=== PATIENT | male | born 1950 | race African-American/Black ===

== ENCOUNTER 2020-02-05 19:29 | Emergency (ER) | payer MEDICARE ==
[~2020-02-05] VITALS: Ht 185.4 cm; Wt 107.5 kg
[2020-02-05] MEDS ORDERED: MACROBID 100 M100 MG PO (20:07)
[2020-02-15] MEDS ORDERED: FLOMAX0.4 MG PO (11:44)
[2020-02-15] MEDS ORDERED: BACTRIM DS TAB1 EACH PO (11:45)
[2020-02-15] MEDS ORDERED: OXYBUTYNIN CHLOR5 MG PO (11:45)
[2020-02-15] MEDS ORDERED: FINASTERIDE5 MG PO (11:46)
[2020-02-15] MEDS ORDERED: FLUCONAZOLE100 MG PO (11:47)
[2020-02-15] MEDS ORDERED: LEVOFLOXACIN250 MG PO (11:49)
[2020-02-15] MEDS ORDERED: TYLENOL # 31 EA PO (11:49)
[2020-02-15] MEDS ORDERED: CEFDINIR300 MG PO (11:50)
== END 2020-02-05 20:43 | disposition home or self-care (01) ==
LOC: FSED 20:21
DX: R33.9 Retention of urine, unspecified (principal); N39.0 Urinary tract infection, site not specified
CPT/HCPCS: 51700; 81003; 99282

== ENCOUNTER 2020-02-14 05:57 | Emergency (ER) | payer MEDICARE ==
[~2020-02-14] VITALS: Ht 185.4 cm; Wt 108.9 kg
[~2020-02-14 05:57] MED LIST: MACROBID 100 M100 MG PO
--- OUTSIDE RECORDS SUMMARY | 2020-02-14 06:12 | XMS REPORT | Continuity of Care Document ---
Author Author [facility] t Organization [facility] t Address [address] [place] [address] Phone Unavailable Care Team Providers Care Brood Station Manager Name Role Phone Lashaun SCHILLING PCP ROWDY NAVARRETE APRN Attphys Unavailable Payers Payer Name Policy Type Policy Number Effective Date Expiration Date S ource Problems Condition Name Condition Details Condition Category Status Onset Date Resolution Date Last Treatment Date Treating Clinician Comments Source Retention of urine Problem Active [facility] Urinary tract infection Problem Active [facility] Allergies, Adverse Reactions, Alerts Allergy Name Allergy Type Status Severity Reaction(s) Onset Date Inacti ve Date Treating Clinician Comments Source No Known Allergies DA Active U 2019-11-01 00:00:00 [facility] ALMONDS DA Active U 2018-11-02 00:00:00 [facility] No Known Contrast Allergies DA Active U 2005-06-06 00:00: 00 [facility] No Known Drug Allergies DA Active U 2005-06-06 00:00:00 [facility] No Known Food Allergies DA Active U 2005-06-06 00:00:00 [facility] No Known Other Allergies DA Active U 2005-06-06 00:00:00 [facility] No Known Drug Intolerances DA Active U 2002-01-08 00:00:0 0 [facility] Social History Social Habit Start Date Stop Date Quantity Comments Source Sex Assigned At 1950 00:00:00 1950 00:00:00 Male [facility] Medications Ordered Medication Name Filled Medication Name Start Date Stop Da te Current Medication? Ordering Clinician Indication Dosage Frequency Signature (SIG) Comments Components Source Nitrofurantoin Monohyd/M-Cryst (Macrobid 100 Mg Capsul e) 100 Mg CAPSULE Nitrofurantoin Monohyd/M-Cryst (Macrobid 100 Mg Capsule) 100 Mg CAPSULE 2020-02-05 21:07:00 Yes 100 Twice Daily With M eals [facility] Tamsulosin HCl - 0.4 MG Oral Capsule Tamsulosin HCl - 0.4 MG Oral C apsule Yes [facility] Vital Signs Vital Name Observation Time Observation Value Comments Source Oxygen saturation by Pulse oximetry 2020-02-05 20:40:00 98 /min [facility] Weight 2020-02-05 20:40:00 237 [lb_av] [facility] BMI (Body Mass Index) 2020-02-05 20:40:00 31.3 kg/m2 [facility] Systolic blood pressure 2019-11-04 09:19:00 181 mm[Hg] Loca tion: LUE; Position: Standing [facility] Diastolic blood pressure 2019-11-04 09:19:00 98 mm[Hg] Loc ation: LUE; Position: Standing [facility] Body height 2019-11-04 09:19:00 73 [in_us] [facility] Weight 2019-11-04 09:19:00 240 [lb_av] [facility] Body mass index (BMI) [Ratio] 2019-11-04 09:19:00 31.66 kg/m2 [facility] Body temperature 2019-11-04 09:19:00 99 [degF] Method: Temporal [facility] Heart Rate 2019-11-04 09:19:00 114 /min [facility] Respiratory rate 2019-11-04 09:19:00 18 /min [facility] Procedures This patient has no known procedures. Plan of Care Planned Activity Planned Date Details Comments Source Instructions [facility] Instructions Urinary Retention [facility] Instructions Urinary Tract Infection - Men [facility] Encounters Start Date/Time End Date/Time Encounter Type Admission Type Attendi [facility] Care Department Encounter ID Source 2020-02-05 21:21:00 2020-02-05 21:43:00 Departed Emergency Room [facility] [id number] [facility] 2019-11-04 09:30:00 2019-11-04 09:30:00 Appointment; ROWDY NAVARRETE APRN TRAN, JUSTINE, APRN UTP Urology - [facility] [id number] [facility] Results Test Description Test Time Test Comments Results Result Comments Source URINALYSIS COMPLETE 2019-11-04 21:22:00 Test Item UA COLOR (test code = COLU) YELLOW YELLOW UA APPEARANCE (test code = APPU) HAZY CLEAR A UA GLUCOSE DIPSTICK (test code = DGLUU) NEGATIVE mg/dL NEGATIVE UA BILIRUBIN DIPSTICK (test code = BILU) NEGATIVE NEGATIVE UA KETONE DIPSTICK (test code = KETU) NEGATIVE mg/dL NEGATIVE UA SPECIFIC GRAVITY (test code = SGU) 1.020 1.001-1.035 UA BLOOD DIPSTICK (test code = FILIBERTO) 3+ (Large) NEGATIVE A UA PH DIPSTICK (test code = ALEXANDRE) 6.0 5.0-8.0 UA PROTEIN DIPSTICK (test code = PROU) NEGATIVE mg/dL Neg-15 UA UROBILINIOGEN DIPSTICK (test code = URO) 0.2 mg/dL 0.0-0.2 UA NITRITE DIPSTICK (test code = ROHITH) NEGATIVE NEGATIVE UA LEUKOCYTE ESTERASE DIPSTICK (test code = LEUU) NEGATIVE uL NEGA TIVE UA MICROSCOPIC NEEDED? (test code = UAMICRO) YES UA WBC (test code = WBCU) 0-5 per HPF 0-5 UA RBC (test code = RBCU) 50-100 per HPF 0-5 A UA EPITHELIAL CELLS (test code = EPIU) Few (2-5/hpf) per HPF Few UA BACTERIA (test code = BACU) RARE per HPF NONE Urine Source? CatheterURINALYSIS [id number] 21:15:00* Test Item Value Reference Range Interpretation Comments UA COLOR (test code = COLU) YELLOW YELLOW UA APPEARANCE (test code = APPU) HAZY CLEAR A UA GLUCOSE DIPSTICK (test code = DGLUU) NEGATIVE mg/dL NEGATIVE UA BILIRUBIN DIPSTICK (test code = BILU) NEGATIVE NEGATIVE UA KETONE DIPSTICK (test code = KETU) NEGATIVE mg/dL NEGATIVE UA SPECIFIC GRAVITY (test code = SGU) 1.020 1.001-1.035 UA BLOOD DIPSTICK (test code = FILIBERTO) 3+ (Large) NEGATIVE A UA PH DIPSTICK (test code = ALEXANDRE) 6.0 5.0-8.0 UA PROTEIN DIPSTICK (test code = PROU) NEGATIVE mg/dL Neg-15 UA UROBILINIOGEN DIPSTICK (test code = URO) 0.2 mg/dL 0.0-0.2 UA NITRITE DIPSTICK (test code = ROHITH) NEGATIVE NEGATIVE UA LEUKOCYTE ESTERASE DIPSTICK (test code = LEUU) NEGATIVE uL NEGA TIVE UA MICROSCOPIC NEEDED? (test code = UAMICRO) UA WBC (test code = WBCU) per HPF 0-5 UA RBC (test code = RBCU) per HPF 0-5 UA EPITHELIAL CELLS (test code = EPIU) per HPF Few UA BACTERIA (test code = BACU) per HPF NONE Urine Source? CatheterBASIC METABOLIC [id number] 20:57:00* Test Item Value Reference Range Interpretation Comments SODIUM (test code = NA) 139 mmol/L 128-145 N POTASSIUM (test code = K) 3.6 mmol/L 3.5-5.1 N CHLORIDE (test code = CL) 103.0 mmol/L 98-107 N CARBON DIOXIDE (test code = CO2) 25.4 mmol/L 22-29 N ANION GAP (test code = GAP) 14 mmol/L 10-20 N GLUCOSE (test code = GLU) 114 mg/dL 70-110 H BLOOD UREA NITROGEN (test code = BUN) 11 mg/dL 7-22 N GLOMERULAR FILTRATION RATE (test code = GFR) > 60 mL/min >=60 Estimated GFR by using Modified MDRD formula.Chronic kidney disease is defined as either kidney damageor GFR <60 mL/min/1.73 m2 for >3 months. CREATININE (test code = CREAT) 1.17 mg/dL 0.55-1.3 N BUN/CREATININE RATIO (test code = BUN/CREA) 9.4 10-20 L CALCIUM (test code = CA) 8.4 mg/dL 8.0-10.5 N CBC W/AUTO [id number] 20:49:00* Test Item Value Reference Range Interpretation Comments WHITE BLOOD CELL (test code = WBC) 7.6 K/mm3 4.5-12.5 N RED BLOOD CELL (test code = RBC) 4.63 mill/mm3 4.0-5.8 N HEMOGLOBIN (test code = HGB) 12.4 gram/dL 13.0-17.5 L HEMATOCRIT (test code = HCT) 38.9 % 42.0-52.0 L MEAN CELL VOLUME (test code = MCV) 84.0 fL 80-98 N MEAN CELL HGB (test code = MCH) 26.8 picogram 27.0-33.0 L MEAN CELL HGB CONCETRATION (test code = MCHC) 31.9 gram/dL 33.0-36. 0 L RED CELL DISTRIBUTION WIDTH (test code = RDW) 14.0 % 11.6-16. 2 N RED CELL DISTRIBUTION WIDTH SD (test code = RDW-SD) 43.1 fL 37 .0-51.0 N PLATELET COUNT (test code = PLT) 559 K/mm3 150-450 H MEAN PLATELET VOLUME (test code = MPV) 8.6 fL 6.7-11.0 N NEUTROPHIL % (test code = NT%) 67.0 % 39.0-69.0 N LYMPHOCYTE % (test code = LY%) 19.2 % 25.0-55.0 L MONOCYTE % (test code = MO%) 10.5 % 0.0-10.0 H EOSINOPHIL % (test code = EO%) 1.8 % 0.0-5.0 N BASOPHIL % (test code = BA%) 0.5 % 0.0-1.0 N NEUTROPHIL # (test code = NT#) 5.11 K/mm3 1.8-7.7 N LYMPHOCYTE # (test code = LY#) 1.47 K/mm3 1.0-5.0 N MONOCYTE # (test code = MO#) 0.80 K/mm3 0-0.8 N EOSINOPHIL # (test code = EO#) 0.14 K/mm3 0.0-0.5 N BASOPHIL # (test code = BA#) 0.04 K/mm3 0.0-0.2 N URINALYSIS [id number] 23:01:00* Test Item Value Reference Range Interpretation Comments UA COLOR (test code = COLU) RED YELLOW A UA APPEARANCE (test code = APPU) VERY CLOUDY CLEAR A UA GLUCOSE DIPSTICK (test code = DGLUU) NEGATIVE mg/dL NEGATIVE UA BILIRUBIN DIPSTICK (test code = BILU) NEGATIVE NEGATIVE UA KETONE DIPSTICK (test code = KETU) NEGATIVE mg/dL NEGATIVE UA SPECIFIC GRAVITY (test code = SGU) 1.015 1.001-1.035 UA BLOOD DIPSTICK (test code = FILIBERTO) 3+ (Large) NEGATIVE A UA PH DIPSTICK (test code = ALEXANDRE) 7.0 5.0-8.0 UA PROTEIN DIPSTICK (test code = PROU) 100 (2+) mg/dL Neg-15 UA UROBILINIOGEN DIPSTICK (test code = URO) 0.2 mg/dL 0.0-0.2 UA NITRITE DIPSTICK (test code = ROHITH) NEGATIVE NEGATIVE UA LEUKOCYTE ESTERASE DIPSTICK (test code = LEUU) TRACE uL NEGA TIVE A UA MICROSCOPIC NEEDED? (test code = UAMICRO) YES UA WBC (test code = WBCU) 0-5 per HPF 0-5 UA RBC (test code = RBCU) >100 per HPF 0-5 UA EPITHELIAL CELLS (test code = EPIU) None seen per HPF Few UA BACTERIA (test code = BACU) NONE SEEN per HPF NONE Urine Source? Clean CatchURINALYSIS [id number] 22:58:00* Test Item Value Reference Range Interpretation Comments UA COLOR (test code = COLU) RED YELLOW A UA APPEARANCE (test code = APPU) VERY CLOUDY CLEAR A UA GLUCOSE DIPSTICK (test code = DGLUU) NEGATIVE mg/dL NEGATIVE UA BILIRUBIN DIPSTICK (test code = BILU) NEGATIVE NEGATIVE UA KETONE DIPSTICK (test code = KETU) NEGATIVE mg/dL NEGATIVE UA SPECIFIC GRAVITY (test code = SGU) 1.015 1.001-1.035 UA BLOOD DIPSTICK (test code = FILIBERTO) 3+ (Large) NEGATIVE A UA PH DIPSTICK (test code = ALEXANDRE) 7.0 5.0-8.0 UA PROTEIN DIPSTICK (test code = PROU) 100 (2+) mg/dL Neg-15 UA UROBILINIOGEN DIPSTICK (test code = URO) 0.2 mg/dL 0.0-0.2 UA NITRITE DIPSTICK (test code = ROHITH) NEGATIVE NEGATIVE UA LEUKOCYTE ESTERASE DIPSTICK (test code = LEUU) TRACE uL NEGA TIVE A UA MICROSCOPIC NEEDED? (test code = UAMICRO) UA WBC (test code = WBCU) per HPF 0-5 UA RBC (test code = RBCU) per HPF 0-5 UA EPITHELIAL CELLS (test code = EPIU) per HPF Few UA BACTERIA (test code = BACU) per HPF NONE Urine Source? Clean CatchCOMPREHENSIVE METABOLIC [id number] 22:46:00* Test Item Value Reference Range Interpretation Comments SODIUM (test code = NA) 132 mmol/L 128-145 N POTASSIUM (test code = K) 3.2 mmol/L 3.5-5.1 L CHLORIDE (test code = CL) 97.0 mmol/L 98-107 L CARBON DIOXIDE (test code = CO2) 27.6 mmol/L 22-29 N ANION GAP (test code = GAP) 11 mmol/L 10-20 N GLUCOSE (test code = GLU) 120 mg/dL 70-110 H BLOOD UREA NITROGEN (test code = BUN) 16 mg/dL 7-22 N CREATININE (test code = CREAT) 1.23 mg/dL 0.55-1.3 N BUN/CREATININE RATIO (test code = BUN/CREA) 13.0 10-20 N TOTAL PROTEIN (test code = PROT) 7.0 gram/dL 6.1-7.8 N ALBUMIN (test code = ALB) 3.4 g/dL 3.3-4.4 N GLOBULIN (test code = GLOB) 3.6 G/DL 1-10 N ALBUMIN/GLOBULIN RATIO (test code = A/G) 0.9 0.75-1.50 N CALCIUM (test code = CA) 7.6 mg/dL 8.0-10.5 L BILIRUBIN TOTAL (test code = BILT) 0.80 mg/dL 0.2-1.2 N SGOT/AST (test code = AST) 27 U/L 10-39 N SGPT/ALT (test code = ALT) 30 U/L 10-69 N ALKALINE PHOSPHATASE TOTAL (test code = ALKP) 78 U/L 50-139 N COMPREHENSIVE METABOLIC [id number] 22:35:00* Test Item Value Reference Range Interpretation Comments SODIUM (test code = NA) 132 mmol/L 128-145 N POTASSIUM (test code = K) 3.2 mmol/L 3.5-5.1 L CHLORIDE (test code = CL) 97.0 mmol/L 98-107 L CARBON DIOXIDE (test code = CO2) 27.6 mmol/L 22-29 N ANION GAP (test code = GAP) 11 mmol/L 10-20 N GLUCOSE (test code = GLU) 120 mg/dL 70-110 H BLOOD UREA NITROGEN (test code = BUN) 16 mg/dL 7-22 N CREATININE (test code = CREAT) 1.23 mg/dL 0.55-1.3 N BUN/CREATININE RATIO (test code = BUN/CREA) 13.0 10-20 N TOTAL PROTEIN (test code = PROT) gram/dL 6.4-8.2 ALBUMIN (test code = ALB) g/dL 3.4-5.0 GLOBULIN (test code = GLOB) G/DL 1-10 ALBUMIN/GLOBULIN RATIO (test code = A/G) 0.75-1.50 CALCIUM (test code = CA) 7.6 mg/dL 8.0-10.5 L BILIRUBIN TOTAL (test code = BILT) mg/dL 0.0-1.0 SGOT/AST (test code = AST) IUnit/L 15-37 SGPT/ALT (test code = ALT) IUnit/L 12-78 ALKALINE PHOSPHATASE TOTAL (test code = ALKP) IUnit/L 45-117 CBC W/AUTO [id number] 22:26:00* Test Item Value Reference Range Interpretation Comments WHITE BLOOD CELL (test code = WBC) 4.7 K/mm3 4.5-12.5 N RED BLOOD CELL (test code = RBC) 4.99 mill/mm3 4.0-5.8 N HEMOGLOBIN (test code = HGB) 13.8 gram/dL 13.0-17.5 N HEMATOCRIT (test code = HCT) 41.8 % 42.0-52.0 L MEAN CELL VOLUME (test code = MCV) 83.8 fL 80-98 N MEAN CELL HGB (test code = MCH) 27.7 picogram 27.0-33.0 N MEAN CELL HGB CONCETRATION (test code = MCHC) 33.0 gram/dL 33.0-36. 0 N RED CELL DISTRIBUTION WIDTH (test code = RDW) 13.0 % 11.6-16. 2 N RED CELL DISTRIBUTION WIDTH SD (test code = RDW-SD) 40.5 fL 37 .0-51.0 N PLATELET COUNT (test code = PLT) 207 K/mm3 150-450 N MEAN PLATELET VOLUME (test code = MPV) 9.3 fL 6.7-11.0 N NEUTROPHIL % (test code = NT%) 41.1 % 39.0-69.0 N LYMPHOCYTE % (test code = LY%) 41.2 % 25.0-55.0 N MONOCYTE % (test code = MO%) 15.8 % 0.0-10.0 H EOSINOPHIL % (test code = EO%) 0.4 % 0.0-5.0 N BASOPHIL % (test code = BA%) 0.4 % 0.0-1.0 N NEUTROPHIL # (test code = NT#) 1.92 K/mm3 1.8-7.7 N LYMPHOCYTE # (test code = LY#) 1.93 K/mm3 1.0-5.0 N MONOCYTE # (test code = MO#) 0.74 K/mm3 0-0.8 N EOSINOPHIL # (test code = EO#) 0.02 K/mm3 0.0-0.5 N BASOPHIL # (test code = BA#) 0.02 K/mm3 0.0-0.2 N PROSTATE,[id number] 15:08:00 RUN DATE: 11/06/18 [facility] PAGE 1 RUN TIME: 1508 Specimen Inqui ry RUN USER: INTERFACE PATIENT: YOHANNES TRIPP ACCT #: [id number] LOC: U #: [id number] AGE/SX: 67/M ROOM: RE11/04/18REG DR: Edis Sosa : 54 BED: DIS: STATUS: [facility] TLOC: SPEC #: [id number] RECD: 11/04/18 STATUS: JENNYFER KAYLI #: [id number] ROSANGELA: 11/04/18- SUBM DR: Edis Sosa ENTERED: 11/04/18 SP TYPE: BX PROS OTHR DR: Sal Schilling MD ORDERED: GROSS COPIES TO: Edis Sosa [address] [place], [place] [id number] [place] [id number] [facility] [address] [place] [address] MARKERS: INTRADEPARTMENTAL CONSULT PROCEDURES: GROSS (11/06/18-1332) TISSUES: 1. PROSTATE, NOS - RIGHT BASE LATERAL 2. PROSTATE, NOS - RIGHT MEDIAL LATERAL 3. P ROSTATE, NOS - RIGHT APEX LATERAL 4. PROSTATE, NOS - RIGHT BASE MIDDLE 5. PROSTATE, NOS - RIGHT RIGHT MEDIAL MIDDLE 6. PROSTATE, NOS - R IGHT APEX MIDDLE 7. PROSTATE, NOS - LEFT BASE MIDDLE 8. PROSTATE , NOS - LEFT MEDIAL MIDDLE 9. PROSTATE, NOS - LEFT APEX MIDDLE 1 0. PROSTATE, NOS - LEFT BASE LATERAL 11. PROSTATE, NOS - LEFT MEDIAL LAT ERAL 12. PROSTATE, NOS - LEFT APEX LATERAL CLINICAL HISTORY C OLLECTION DATE: 11/04/2018 elevated PSA COMMENT Intradepartm ental consultation: RRB. CONTINUED ON NEXT P AGE RUN DATE: 11/06/18 [facility] PAGE 2 RUN TIME: 1508 Specime n Inquiry RUN USER: INTERFACE SPEC #: [id number] PATIENT: MALKA MENJIVARYOHANNES VIVEROSNE #[id number] (Continued) FINAL D IAGNOSIS Prostate, left base middle, core biopsy: PROSTATIC TISSUE NEGATIVE FOR MALIGNANCY Prostate, left medial middle, core biopsy: PROSTATIC TISSUE NEGATIVE FOR MALIGNANCY Prostate, right apex l ateral: FOCAL CHRONIC INFLAMMATION, PROSTATIC TISSUE NEGATIVE FOR MALIGNANCY Prostate, right base middle: NO TISSUE REMAINING AFTER P ROCESSING Prostate, right medial middle: CHRONIC INFLAMMATION, PROSTATIC TISSUE NEGATIVE FOR MALIGNANCY Prostate, right apex middl e: FOCAL ACUTE AND CHRONIC INFLAMMATION, PROSTATIC TISSUE NEGATIVE FOR MALIGNANCY Prostate, left base middle, core biopsy: ACUTE AND CHRONIC INFLAMMATION, PROSTATIC TISSUE NEGATIVE FOR MALIGNANCY Prostate, left medial middle, core biopsy: PATCHY CHRONIC INFLAMMATION, PROSTATIC TISSUE NEGATIVE FOR MALIGNANCY Prostate, left apex middle , core biopsy: PATCHY CHRONIC INFLAMMATION, PROSTATIC TISSUE NEGATIVE FOR MALIGNANCY Prostate, left base lateral, core biopsy: P ATCHY CHRONIC INFLAMMATION, PROSTATIC TISSUE NEGATIVE FOR MALIGNANCY Prostate, left medial lateral, core biopsy: PATCHY CHRONIC INFLAMMATION , PROSTATIC TISSUE NEGATIVE FOR MALIGNANCY Prostate, left apex late ral, core biopsy: PATCHY CHRONIC INFLAMMATION, PROSTATIC TISSUE NE GATIVE FOR MALIGNANCY CONTINUED ON NEX T PAGE RUN DATE: 11/06/18 [facility] PAGE 3 RUN TIME: 1508 Spec imen Inquiry RUN USER: INTERFACE SPEC #: [id number] PATIENT: YOHANNES PRETTY #[id number] (Continued) FINAL DIAGNOSIS (Continued) DMW/margie Sanchez [id number] MACROSCOPIC The first specimen is labeled "right base lateral" and consists of one moss sof t tissue core biopsy measuring 1.0 cm in length by 0.1 cm in diameter, submitt ed as (1). The second specimen is labeled "right medial lateral" and con sists of one moss soft tissue core biopsy measuring 2.1 cm in length by 0.1 cm in diameter, submitted as (2). The third specimen is labeled "right apex lateral" and consists of one moss soft tissue core biopsy measuring 2.0 cm in length by 0.1 cm in diameter, submitted as (3). The fourth specimen is l abeled "right base middle" and consists of one moss soft tissue core biopsy addison suring 0.6 cm in length by 0.1 cm in diameter, submitted as (4). The fif th specimen is labeled "right medial middle" and consists of one moss soft tiss ue core biopsy measuring 1.5 cm in length by 0.1 cm in diameter, submitted as (5). The sixth specimen is labeled "right apex middle" and consists of two moss soft tissue core biopsies measuring 0.4 and 1.1 cm in length by 0.1 cm in diameter, submitted as (6). The seventh specimen is labeled "left base middle" and consists of one moss soft tissue core biopsy measuring 1.2 and 1.1 cm in length by 0.1 cm in diameter, submitted as (7). The eighth specime n is labeled "left medial middle" and consists of one moss soft tissue core bio psy measuring 1.7 and 1.1 cm in length by 0.1 cm in diameter, submitted as (8) . The ninth specimen is labeled "left apex middle" and consists of one moss soft tissue core biopsy measuring 1.5 and 1.1 cm in length by 0.1 cm in vern meter, submitted as (9). The tenth specimen is labeled "left base lateral" and consists of one moss soft tissue core biopsy measuring 1.2 and 1.1 cm in l ength by 0.1 cm in diameter, submitted as (10). The eleventh specimen is labeled "left medial lateral" and consists of one moss soft tissue core biopsy measuring 1.8 and 1.1 cm in length by 0.1 cm in diameter, submitted as (11). CONTINUED ON NEXT PAGE RUN DATE : 11/06/18 [facility] PAGE 4 RUN TIME: 1508 Specimen Inquiry RUN USER: INTERFACE SPEC #: [id number] PATIENT: YOHANNES TRIPP #[id number] (Continued) MACROSCOPIC (Continue d) The twelfth specimen is labeled "left apex lateral" and consists of on e moss soft tissue core biopsy measuring 1.0 and 1.1 cm in length by 0.1 cm in diameter, submitted as (12). GROSS PERFORMED AT [facility] [address] [place] [place] [address] [phone] MICROSCOPIC All of the stains, including an y controls performed, stain appropriately. MICROSCOPIC PERFORMED AT [facility] [address] [place] [address] (p)[phone] PERFORMING SITE Diagnosis performed a t: [facility] [address] [facility] [place] [address] -- Signed SIGNATURE ON FILE Gale Renteria MD 11/06/18 1508 EN D OF REPORT - XR CHEST 2 [id number] 07:15:00 FAX: Edis Diaz [phone] [place]: St: REG FAX: Dolores Johnson MD [phone] Name: YOHANNES TRIPP [facility] : 1950 Age/S: 67/M [address] Unit #: [id number] Loc: [place] [address] Phys: Edis Sosa Acct: [id number] Dis Date: Status: REG [facility] PHONE #: [phone] Exam Date: 11/04/2018 0656 FAX #: [phone] Reason: PRE-OP EXAMS: CPT CODE: [id number] XR CHEST 2 V [id number] HISTORY: PRE-OP TECHNIQUE: AP chest x-ray COMPARISON: None FINDINGS: No airspace consoli dation or pleural effusion. Eventration of the anterior right hemidiaphrag m. Normal heart size. Mediastinal silhouette is unremarkable. Thoracic spo ndylosis. IMPRESSION: No radiographic evidence of acute cardiopulmonary process. at 0715 Reported and signed by: Rosa Isela Baron D.O. CC: Edis Sosa M.D.; Dolores cShilling MD Technologist: ALEXIS BEAUCHAMP JR Trnscrd Date/Time/By: 11/04/2018 (07) : By: [email or web address] Orig Print D/T: S: 11/04/2018 (0718) PAGE 1 Signed Report BASIC METABOLIC [id number] 07:05:00* Test Item Value Reference Range Interpretation Comments SODIUM (test code = NA) 143 mmol/L 136-145 N POTASSIUM (test code = K) 4.3 mmol/L 3.5-5.1 N CHLORIDE (test code = CL) 110.0 mmol/L 98-107 H CARBON DIOXIDE (test code = CO2) 28.0 mmol/L 21-32 N ANION GAP (test code = GAP) 9.3 10-20 L GLUCOSE (test code = GLU) 92 mg/dL 74-106 N BLOOD UREA NITROGEN (test code = BUN) 15 mg/dL 7-18 N GLOMERULAR FILTRATION RATE (test code = GFR) > 60 mL/min >=60 Estimated GFR by using Modified MDRD formula.Chronic kidney disease is defined as either kidney damageor GFR <60 mL/min/1.73 m2 for >3 months. CREATININE (test code = CREAT) 1.20 mg/dL 0.7-1.3 N BUN/CREATININE RATIO (test code = BUN/CREA) 12.3 10-20 N CALCIUM (test code = CA) 9.4 mg/dL 8.5-10.1 N CBC W/AUTO [id number] 07:04:00* Test Item Value Reference Range Interpretation Comments WHITE BLOOD CELL (test code = WBC) 4.4 K/mm3 4.5-12.5 L RED BLOOD CELL (test code = RBC) 5.53 mill/mm3 4.0-5.8 N HEMOGLOBIN (test code = HGB) 15.3 gram/dL 13.0-17.5 N HEMATOCRIT (test code = HCT) 47.9 % 42.0-52.0 N MEAN CELL VOLUME (test code = MCV) 86.6 fL 80-98 N MEAN CELL HGB (test code = MCH) 27.7 picogram 27.0-33.0 N MEAN CELL HGB CONCETRATION (test code = MCHC) 31.9 gram/dL 33.0-36. 0 L RED CELL DISTRIBUTION WIDTH (test code = RDW) 13.4 % 11.6-16. 2 N RED CELL DISTRIBUTION WIDTH SD (test code = RDW-SD) 42.5 fL 37 .0-51.0 N PLATELET COUNT (test code = PLT) 205 K/mm3 150-450 N MEAN PLATELET VOLUME (test code = MPV) 9.8 fL 6.7-11.0 N NEUTROPHIL % (test code = NT%) 44.1 % 39.0-69.0 N IMMATURE GRANULOCYTE % (test code = IG%) 0.5 % 0.0-5.0 N LYMPHOCYTE % (test code = LY%) 39.8 % 25.0-55.0 N MONOCYTE % (test code = MO%) 11.2 % 0.0-10.0 H EOSINOPHIL % (test code = EO%) 3.7 % 0.0-5.0 N BASOPHIL % (test code = BA%) 0.7 % 0.0-1.0 N NUCLEATED RBC % (test code = NRBC%) 0.0 % 0-0 N NEUTROPHIL # (test code = NT#) 1.93 K/mm3 1.8-7.7 N IMMATURE GRANULOCYTE # (test code = IG#) 0.02 x10 3/uL 0-0.03 N LYMPHOCYTE # (test code = LY#) 1.74 K/mm3 1.0-5.0 N MONOCYTE # (test code = MO#) 0.49 K/mm3 0-0.8 N EOSINOPHIL # (test code = EO#) 0.16 K/mm3 0.0-0.5 N BASOPHIL # (test code = BA#) 0.03 K/mm3 0.0-0.2 N NUCLEATED RBC # (test code = NRBC#) 0.00 K/mm3 0.0-0.1 N BASIC METABOLIC [id number] 07:02:00* Test Item Value Reference Range Interpretation Comments SODIUM (test code = NA) 143 mmol/L 136-145 N POTASSIUM (test code = K) 4.3 mmol/L 3.5-5.1 N CHLORIDE (test code = CL) 110.0 mmol/L 98-107 H CARBON DIOXIDE (test code = CO2) mmol/L 21-32 ANION GAP (test code = GAP) 10-20 GLUCOSE (test code = GLU) mg/dL 74-106 BLOOD UREA NITROGEN (test code = BUN) mg/dL 7-18 GLOMERULAR FILTRATION RATE (test code = GFR) mL/min >=60 CREATININE (test code = CREAT) mg/dL 0.7-1.3 BUN/CREATININE RATIO (test code = BUN/CREA) 10-20 CALCIUM (test code = CA) 9.4 mg/dL 8.5-10.1 N
[2020-02-14] MEDS ORDERED: CEFDINIR300 MG PO (06:25)
--- NOTE | 2020-02-14 06:30 | Emergency Department Note ---
History of Present Illnes History of Present Illness Chief Complaint: Genitourinary History of Present Illness This is a 69 year old male, with a history of BPH status post a partial TURP 2 months ago, was seen here on 02/05/20 with urinary retention and had a Camejo catheter placed. Patient states that since 1300 yesterday afternoon, he has not had any drainage from his Camejo. He is experiencing some suprapubic fullness and discomfort. He denies any fever, chills, nausea, or vomiting. He also denies seeing any blood in his urine. Patient states he is scheduled to have the TURP completed on 02/25/[address] Rodriguez. 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 Onset (how long ago): hour(s) (16) Location: bladder Quality: pressure/discomfort Radiation: Reports abdomen (suprapubic;); Denies back Severity: moderate Onset quality: sudden Duration (how long): hour(s) (16) Timing of current episode: constant Progression: worsening Chronicity: new Context: Reports recent surgery (partial TURP, 2 months ago;); Denies recent illness, Denies trauma/injury, Denies new medications Relieving factors: none Exacerbating factors: none Associated symptoms: Reports denies other symptoms; Denies cough, Denies fever/chills, Denies nausea/vomiting Treatments prior to arrival: none Risk factors: BPH Past Medical/Family History Physician Review I have reviewed the patient's past medical and family history. Any updates have been documented here. Past Medical History Recent Fever: No Clinical Suspicion of Infectio: No New/Unexplained Change in Ment: No Other Medical History: BPH Other Surgery: PROSTATE SX SKIN GRAFT RT HAND D/T ELECTRICAL BURN Social History Smoking Cessation: Never Smoker Alcohol Use: None Any Illegal Drug Use: No TB Exposure/Symptoms: No Physically hurt or threatened: No Family History Family history of heart diseas: No Other Any Pre-Existing Lines (PICC,: No Review of Systems Review of Systems Constitutional: Denies chills, Denies fever, Denies weakness EENTM: Reports no symptoms Cardiovascular: Denies chest pain, Denies palpitations Respiratory: Reports no symptoms Gastrointestinal: Reports abdominal pain (suprapubic); Denies constipation, Denies diarrhea, Denies nausea, Denies vomiting Genitourinary: Reports other (camejo in place) Musculoskeletal: Denies back pain, Denies muscle pain Integumentary: Denies change in color, Denies rash Neurological: Reports no symptoms Psychological: Reports no symptoms Endocrine: Reports no symptoms Hematological/Lymphatic: Reports no symptoms Review of other systems: All other systems negative Physical Exam Related Data Allergies: Coded Allergies: No Known Allergies (Unverified , 02/05/20) Vital signs reviewed: Yes Physical Exam CONSTITUTIONAL Constitutional: Present well-developed, Present well-nourished; Absent distressed, Absent ill appearing HENT HENT: Present normocephalic, Present atraumatic, Present oropharynx clear/moist, Present nose normal HENT L/R: Present left ext ear normal, Present right ext ear normal EYES Eyes: Reports PERRL, Reports conjunctivae normal NECK Neck: Present ROM normal, Present supple; Absent cervical adenopathy PULMONARY Pulmonary: Present effort normal, Present breath sounds normal CARDIOVASCULAR Cardiovascular: Present regular rhythm, Present heart sounds normal, Present capillary refill normal, Present normal rate GASTROINTESTINAL Abdominal: Present soft, Present bowel sounds normal, Present tender (mild suprapubic ttp); Absent distension, Absent guarding, Absent rebound GENITOURINARY Genitourinary: Present exam deferred SKIN Skin: Present warm, Present dry; Absent rash MUSCULOSKELETAL Musculoskeletal: Present ROM normal NEUROLOGICAL Neurological: Present alert, Present oriented x 3 PSYCHOLOGICAL Psychological: Present mood/affect normal, Present judgement normal Results Laboratory Laboratory UA (cath) - yonis-small, blo - large, pro - > 300 mg/dl, nit - neg., geneva - large; Lab results reviewed: Yes Assessment & Plan Medical Decision Making MDM - Follow-up with Dr. Rodriguez, to let him know that you came and we changed out your camejo catheter and treated you for a bladder infection. - increase water intake. - Continue Camejo catheter care, as previously. - Follow-up with Dr. Rodriguez, as scheduled. Assessment & Plan Final Impression: (1) Camejo catheter problem (2) Urinary retention (3) UTI (urinary tract infection) (4) BPH (benign prostatic hyperplasia) Depart Disposition: HOME, SELF-half-way Meds Active Scripts Cefdinir (OMNICEF) 300 Mg Capsule, 1 TAB PO BID for urine infection, #20 CAP 0 Refills Prov:JELLY ISLAS MD 02/14/20 Nitrofurantoin Monohyd/M-Cryst (MACROBID 100 MG CAPSULE) 100 Mg Capsule, 100 MG PO BIDWM, #20 CAP 1 Refill Prov:JOSE VALADEZ 02/05/20 JELLY ISLAS MD Feb 14, 2020 06:30
--- NOTE | 2020-02-14 06:33 | NUR ---
1000 cc of dark mervin urine drained with forley placed. pt states he feels much better. abd soft
[2020-02-15] MEDS ORDERED: FLOMAX0.4 MG PO (11:44)
[2020-02-15] MEDS ORDERED: OXYBUTYNIN CHLOR5 MG PO (11:45)
[2020-02-15] MEDS ORDERED: BACTRIM DS TAB1 EACH PO (11:45)
[2020-02-15] MEDS ORDERED: FINASTERIDE5 MG PO (11:46)
[2020-02-15] MEDS ORDERED: FLUCONAZOLE100 MG PO (11:47)
[2020-02-15] MEDS ORDERED: LEVOFLOXACIN250 MG PO (11:49)
[2020-02-15] MEDS ORDERED: TYLENOL # 31 EA PO (11:49)
[2020-02-15] MEDS ORDERED: CEFDINIR300 MG PO (11:50)
== END 2020-02-14 06:42 | disposition home or self-care (01) ==
LOC: FSED 06:10
DX: Z46.6 Encounter for fitting and adjustment of urinary device (principal); R33.9 Retention of urine, unspecified; N39.0 Urinary tract infection, site not specified; N40.1 Benign prostatic hyperplasia with lower urinary tract symptoms
CPT/HCPCS: 51700; 81003; 87086; 99283

== ENCOUNTER 2020-02-15 17:55 | Emergency (ER) | payer MEDICARE ==
[~2020-02-15] VITALS: Ht 185.4 cm; Wt 107.0 kg
[~2020-02-15 17:55] MED LIST changes: +BACTRIM DS TAB1 EACH PO; +CEFDINIR300 MG PO; +FINASTERIDE5 MG PO; +FLOMAX0.4 MG PO; +FLUCONAZOLE100 MG PO; +LEVOFLOXACIN250 MG PO; +OXYBUTYNIN CHLOR5 MG PO; +TYLENOL # 31 EA PO
--- NOTE | 2020-02-15 18:52 | Emergency Department Note ---
History of Present Illnes History of Present Illness Chief Complaint: Camejo catheter problem History of Present Illness This is a 69 year old male, with a history of BPH and urinary retention, who initially had a camejo catheter placed here on 02/05/20, and was here on 02/14/20 to have it replaced due to the fact that it was clogged, and not emptying. Pt presents today, because the Camejo catheter "fell out." Patient wears a leg bag, and states that he pulled his pants down to go the bathroom, and the catheter was already out, and in his underwear. This happened just prior to arrival. Patient states that there was a small amount of blood at the penile meatus and discomfort, but he is not having any pain or bleeding currently. Patient is scheduled to have his TURP completed on 02/18/20, as he had a partial TURP 2 months ago, but they were unable to completed due to the size of the prostate and the complexity involved. This surgery has been moved up a week. 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 Onset (how long ago): hour(s) (2) Location: bladder Quality: camejo catheter came out Radiation: Reports non-radiation Severity: mild Onset quality: sudden Duration (how long): hour(s) (2) Timing of current episode: constant Progression: unchanged Chronicity: new Context: Reports recent surgery (Partial TURP 2 months ago;); Denies trauma/injury Relieving factors: none Exacerbating factors: none Associated symptoms: Denies chest pain, Denies cough, Denies fever/chills, Denies nausea/vomiting Treatments prior to arrival: none Risk factors: BPH w/urinary retention Past Medical/Family History Physician Review I have reviewed the patient's past medical and family history. Any updates have been documented here. Past Medical History Recent Fever: No Clinical Suspicion of Infectio: No New/Unexplained Change in Ment: No Other Medical History: BPH Other Surgery: PROSTATE SX SKIN GRAFT RT HAND D/T ELECTRICAL BURN Social History Smoking Cessation: Never Smoker Alcohol Use: None Any Illegal Drug Use: No TB Exposure/Symptoms: No Physically hurt or threatened: No Family History Family history of heart diseas: No Other Any Pre-Existing Lines (PICC,: No Review of Systems Review of Systems Constitutional: Reports no symptoms EENTM: Reports no symptoms Cardiovascular: Reports no symptoms Respiratory: Reports no symptoms Gastrointestinal: Reports no symptoms Genitourinary: Reports other (urinary retention); Denies discharge, Denies dysuria, Denies hematuria Musculoskeletal: Reports no symptoms Integumentary: Reports no symptoms Neurological: Reports no symptoms Review of other systems: All other systems negative Physical Exam Related Data Allergies: Coded Allergies: No Known Allergies (Unverified , 02/05/20) Vital signs reviewed: Yes Physical Exam CONSTITUTIONAL Constitutional: Present well-developed, Present well-nourished HENT HENT: Present normocephalic, Present atraumatic, Present oropharynx clear/moist, Present nose normal HENT L/R: Present left ext ear normal, Present right ext ear normal EYES Eyes: Reports PERRL, Reports conjunctivae normal NECK PULMONARY Pulmonary: Present effort normal, Present breath sounds normal CARDIOVASCULAR Cardiovascular: Present regular rhythm, Present heart sounds normal, Present capillary refill normal, Present normal rate GASTROINTESTINAL Abdominal: Present soft, Present nontender, Present bowel sounds normal; Absent distension, Absent tender GENITOURINARY Genitourinary: Present penis normal SKIN Skin: Present warm, Present dry; Absent rash MUSCULOSKELETAL Musculoskeletal: Present ROM normal NEUROLOGICAL Neurological: Present alert, Present oriented x 3 PSYCHOLOGICAL Psychological: Present mood/affect normal, Present behavior normal Assessment & Plan Medical Decision Making MDM 18 Zimbabwe[place] camejo catheter replaced, without difficulty. Pt cautioned on getting the camejo caught, and pulling the camejo catheter out. - Keep your appointment for your surgery with Dr. Rodriguez on 02/18/2020. - Continue your antibiotics. - Continue camejo catheter care. Assessment & Plan Final Impression: (1) Camejo catheter problem (2) BPH (benign prostatic hyperplasia) (3) UTI (urinary tract infection) (4) Urinary retention Depart Disposition: HOME, SELF-skilled nursing Meds Reported Medications Cefdinir (OMNICEF) 300 Mg Capsule, 300 MG PO BID, CAP 02/15/20 Levofloxacin (LEVOFLOXACIN) 250 Mg Tablet, 750 MG PO DAILY, TAB 02/15/20 Acetaminophen/Codeine* (TYLENOL # 3*) 1 Ea Tab, 1 TAB PO DAILY 02/15/20 Fluconazole (FLUCONAZOLE) 100 Mg Tablet, 100 MG PO DAILY, TAB 02/15/20 Finasteride (FINASTERIDE) 5 Mg Tablet, 5 MG PO DAILY, #30 TAB 02/15/20 Oxybutynin Chloride (OXYBUTYNIN CHLORIDE) 5 Mg Tablet, 5 MG PO BID, #30 TAB 02/15/20 Sulfamethoxazole/Trimethoprim (BACTRIM DS TABLET) 1 Each Tablet, 1 TAB PO BID, #60 TAB 02/15/20 Tamsulosin Hcl* (FLOMAX*) 0.4 Mg Cap, 0.4 MG PO DAILY, #30 CAP 02/15/20 Discontinued Scripts Cefdinir (OMNICEF) 300 Mg Capsule, 1 TAB PO BID for urine infection, #20 CAP 0 Refills Prov:JELLY ISLAS MD 02/14/20 Nitrofurantoin Monohyd/M-Cryst (MACROBID 100 MG CAPSULE) 100 Mg Capsule, 100 MG PO BIDWM, #20 CAP 1 Refill Prov:JOSE VALADEZ 02/05/20 JELLY ISLAS MD Feb 15, 2020 18:52
--- OUTSIDE RECORDS SUMMARY | 2020-02-15 18:58 | XMS REPORT | Continuity of Care Document ---
Author Author [facility] Organization [facility] t Address [address] [place] [address] Phone Unavailable Care Team Providers Care Tool Grinder Set Up Operator Gear Name Role Phone Lashaun SCHILLING PCP HAMPEL, CAROL Attphys Unavailable NAVARRETE, ROWDY, SURGERY NURSE Attphys Unavailable Payers Payer Name Policy Type Policy Number Effective Date Expiration Date S ource Problems Condition Name Condition Details Condition Category Status Onset Date Resolution Date Last Treatment Date Treating Clinician Comments Source Retention of urine Problem Active [facility] Urinary tract infection Problem Active [facility] Allergies, Adverse Reactions, Alerts Allergy Name Allergy Type Status Severity Reaction(s) Onset Date Inacti ve Date Treating Clinician Comments Source No Known Allergies DA Active U 2019-11-01 00:00:00 [facility] ALMONDS DA Active U 2018-11-02 00:00:00 [facility] No Known Contrast Allergies DA Active U 2005-06-06 00:00: 00 [facility] No Known Drug Allergies DA Active U 2005-06-06 00:00:00 [facility] No Known Food Allergies DA Active U 2005-06-06 00:00:00 [facility] No Known Other Allergies DA Active U 2005-06-06 00:00:00 [facility] No Known Drug Intolerances DA Active U 2002-01-08 00:00:0 0 [facility] Social History Social Habit Start Date Stop Date Quantity Comments Source Sex Assigned At 1950 00:00:00 1950 00:00:00 Male [facility] Medications Ordered Medication Name Filled Medication Name Start Date Stop Da te Current Medication? Ordering Clinician Indication Dosage Frequency Signature (SIG) Comments Components Source Cefdinir (Omnicef) 300 Mg CAPSULE Cefdinir (Omnicef) 300 Mg CAPSULE 2020-02-14 06:25:00 Yes 1 Twice A Day for Urine Infecti on [facility] Nitrofurantoin Monohyd/M-Cryst (Macrobid 100 Mg Capsul e) 100 Mg CAPSULE Nitrofurantoin Monohyd/M-Cryst (Macrobid 100 Mg Capsule) 100 Mg CAPSULE 2020-02-05 21:07:00 Yes 100 Twice Daily With M eals [facility] Tamsulosin HCl - 0.4 MG Oral Capsule Tamsulosin HCl - 0.4 MG Oral C apsule Yes [facility] Vital Signs Vital Name Observation Time Observation Value Comments Source Oxygen saturation by Pulse oximetry 2020-02-14 06:00:00 98 /min [facility] Weight 2020-02-14 06:00:00 240 [lb_av] [facility] BMI (Body Mass Index) 2020-02-14 06:00:00 31.7 kg/m2 [facility] Oxygen saturation by Pulse oximetry 2020-02-05 20:40:00 98 /min [facility] Weight 2020-02-05 20:40:00 237 [lb_av] [facility] BMI (Body Mass Index) 2020-02-05 20:40:00 31.3 kg/m2 [facility] Systolic blood pressure 2019-11-04 09:19:00 181 mm[Hg] Loca tion: LUE; Position: Standing [facility] Diastolic blood pressure 2019-11-04 09:19:00 98 mm[Hg] Loc ation: LUE; Position: Standing [facility] Body height 2019-11-04 09:19:00 73 [in_us] [facility] Weight 2019-11-04 09:19:00 240 [lb_av] [facility] Body mass index (BMI) [Ratio] 2019-11-04 09:19:00 31.66 kg/m2 [facility] Body temperature 2019-11-04 09:19:00 99 [degF] Method: Temporal [facility] Heart Rate 2019-11-04 09:19:00 114 /min [facility] Respiratory rate 2019-11-04 09:19:00 18 /min [facility] Procedures This patient has no known procedures. Plan of Care Planned Activity Planned Date Details Comments Source Instructions [facility] Instructions Urinary Tract Infection - Men [facility] Encounters Start Date/Time End Date/Time Encounter Type Admission Type Attendi [facility] Care Department Encounter ID Source 2020-02-14 06:10:00 2020-02-14 06:42:00 Departed Emergency Room [facility] [id number] [facility] 2020-02-05 21:21:00 2020-02-05 21:43:00 Departed Emergency Room [facility] [id number] [facility] 2019-11-04 09:30:00 2019-11-04 09:30:00 Appointment; ROWDY NAVARRETE APRN TRAN, JUSTINE, APRN [facility] - [facility] [id number] [facility] Results Test Description Test Time Test Comments Results Result Comments Source CHEST 2 VIEWS 2020-02-15 13:59:00 [facility] 1950 Sex: M [facility] [address] [address] Patient Name: YOHANNES TRIPP MR #: [id number] : 1950 Age/Sex: 69/M Req #: [id number] [facility] Physician: Ordered by: CAROL CHRIS MD Report #: [id number] Location: OR Room/Bed: Procedure: [id number] DX/CHEST 2 VIEWS Exam Date: 02/15/20 Exam Time: 1329 REPORT STATUS: Signed EXAMINATION: CHEST 2 VIEWS INDICATION: Preop for prostate surgery 20200215 PRE OP COMPARISON: None FINDINGS: TUBES and LINES: None. LUNGS: Lungs are well inflated. Lungs are clear. There is no evidence of pneumonia or pulmonary edema. PLEURA: No pleural effusion or pneumothorax. HEART AND MEDIASTINUM: The cardiomediastinal silhouette is unremarkable. BONES AND SOFT TISSUES: No acute osseous lesion. Soft tissues are unremarkable. UPPER ABDOMEN: No free air under the diaphragm. IMPRESSION: No acute thoracic abnormality. Signed by: Dr. London De La Cruz M.D. on 02/15/2020 2:00 PM Dictated By: LONDON DE LA CRUZ MD, MD 1400 Transcribed By: COLE on 02/15/20 1400 COPY TO: CAROL CHRIS MD URINALYSIS COMPLETE 2019-11-04 21:22:00 Test Item UA [...] RARE per HPF NONE Urine Source? CatheterURINALYSIS [id number] 21:15:00* Test Item Value Reference Range Interpretation [...] per HPF NONE Urine Source? CatheterBASIC METABOLIC [id number] 20:57:00* Test Item Value Reference Range Interpretation [...] CA) 8.4 mg/dL 8.0-10.5 N CBC W/AUTO [id number] 20:49:00* Test Item Value Reference Range Interpretation [...] = BA#) 0.04 K/mm3 0.0-0.2 N URINALYSIS [id number] 23:01:00* Test Item Value Reference Range Interpretation [...] per HPF NONE Urine Source? Clean CatchURINALYSIS [id number] 22:58:00* Test Item Value Reference Range Interpretation [...] HPF NONE Urine Source? Clean CatchCOMPREHENSIVE METABOLIC [id number] 22:46:00* Test Item Value Reference Range Interpretation [...] ALKP) 78 U/L 50-139 N COMPREHENSIVE METABOLIC [id number] 22:35:00* Test Item Value Reference Range Interpretation [...] code = ALKP) IUnit/L 45-117 CBC W/AUTO [id number] 22:26:00* Test Item Value Reference Range Interpretation [...] code = BA#) 0.02 K/mm3 0.0-0.2 N PROSTATE,[id number] 15:08:00 RUN DATE: 11/06/18 [place] [employer] [facility] PAGE 1 RUN TIME: 1508 Specimen Inqui ry RUN USER: INTERFACE PATIENT: YOHANNES TRIPP ACCT #: [id number] LOC: [place] U #: [id number] AGE/SX: 67/M ROOM: RE11/04/18RYNE DR: Edis Sosa : 54 BED: DIS: STATUS: DEP [facility] TLOC: SPEC #: [id number] RECD: 11/04/18 STATUS: JENNYFER BACK #: [id number] ROSANGELA: 11/04/18- SUBM DR: Edis Sosa ENTERED: 11/04/18 SP TYPE: BX PROS OTHR DR: Sal Schilling MD ORDERED: GROSS COPIES TO: Edis Sosa [address] [place] [address] [place] [id number] [place] [address] MARKERS: INTRADEPARTMENTAL CONSULT PROCEDURES: GROSS (11/06/18) TISSUES: 1. PROSTATE, NOS - RIGHT BASE [...] ON NEXT P AGE RUN DATE: 11/06/18 [place] - [facility] PAGE 2 RUN TIME: 1508 Specime n Inquiry RUN USER: INTERFACE SPEC #: [id number] PATIENT: SHIRLEYFE MENJIVARYOHANNES #[id number] (Continued) FINAL D IAGNOSIS Prostate, left base [...] ON NEX T PAGE RUN DATE: 11/06/18 [place] - [facility] PAGE 3 RUN TIME: 1508 Spec imen Inquiry RUN USER: INTERFACE SPEC #: [id number] PATIENT: YOHANNES PRETTY #[id number] (Continued) FINAL DIAGNOSIS (Continued) DMW/ D [id number] MACROSCOPIC The first specimen is labeled "right [...] ON NEXT PAGE RUN DATE : 11/06/18 [facility] PAGE 4 RUN TIME: 1508 Specimen Inquiry RUN USER: INTERFACE SPEC #: [id number] PATIENT: TRIPPYOHANNES #[id number] (Continued) MACROSCOPIC (Continue d) The twelfth specimen is labeled "left apex lateral" and consists of on e moss soft tissue core biopsy measuring 1.0 and 1.1 cm in length by 0.1 cm in diameter, submitted as (12). GROSS PERFORMED AT [facility] [address] [place] [address] (p)[phone] MICROSCOPIC All of the stains, including an y controls performed, stain appropriately. MICROSCOPIC PERFORMED AT [facility] [address] [place] [address] (p)[phone] PERFORMING SITE Diagnosis performed a t: [facility] [address] [place] [address] -- Signed SIGNATURE ON FILE Gale Renteria MD 11/06/18 1508 MAGUI D OF REPORT - XR CHEST 2 [id number] 07:15:00 FAX: Edis Diaz [phone] [place]: B St: REG FAX: Dolores Johnson MD [phone] Name: YOHANNES TRIPP [facility] : 1950 Age/S: 67/M [address] [facility] Unit #: [id number] Loc: [place] [address] Phys: Edis Sosaard Acct: [id number] Dis Date: Status: REG [facility] PHONE #: [phone] Exam Date: 11/04/2018 0656 FAX #: [phone] Reason: PRE-OP EXAMS: CPT CODE: [id number] XR CHEST 2 V 18214 HISTORY: PRE-OP TECHNIQUE: AP chest x-ray COMPARISON: None FINDINGS: No airspace consoli dation or pleural effusion. Eventration of the anterior right hemidiaphrag m. Normal heart size. Mediastinal silhouette is unremarkable. Thoracic spo ndylosis. IMPRESSION: No radiographic evidence of acute cardiopulmonary process. at 0715 Reported and signed by: Rosa Isela Baron D.O. CC: Edis Sosa M.D.; Dolores Schilling MD Technologist: ALEXIS BEAUCHAMP JR Trnscrd Date/Time/By: 11/04/2018 (0715) : By: [email or web address] Orig Print D/T: S: 11/04/2018 (18) PAGE 1 Signed Report BASIC METABOLIC [id number] 07:05:00* Test Item Value Reference Range Interpretation [...] CA) 9.4 mg/dL 8.5-10.1 N CBC W/AUTO [id number] 07:04:00* Test Item Value Reference Range Interpretation [...] NRBC#) 0.00 K/mm3 0.0-0.1 N BASIC METABOLIC [id number] 07:02:00* Test Item Value Reference Range Interpretation [...]
== END 2020-02-15 18:44 | disposition home or self-care (01) ==
LOC: FSED 18:29
DX: Z46.6 Encounter for fitting and adjustment of urinary device (principal); R33.9 Retention of urine, unspecified; N39.0 Urinary tract infection, site not specified; N40.1 Benign prostatic hyperplasia with lower urinary tract symptoms
CPT/HCPCS: 51700; 99282

== ENCOUNTER 2020-02-18 08:19 | Inpatient (IN) | payer MEDICARE ==
[2020-02-15 13:23] LABS: BASOPHILS # (AUTO) 0.1 (0.0-0.1); BASOPHILS % 0.6 % (0.0-1.0); EOSINOPHILS # (AUTO) 0.2 (0.0-0.4); HEMATOCRIT 39.3 % (38.2-49.6); HEMOGLOBIN 12.1 g/dL (14.0-18.0); LYMPHOCYTES # (AUTO) 2.1 (1.0-3.2); LYMPHOCYTES % 21.1 % (18.0-39.1); MEAN CORPUSCULAR HGB CONC 30.8 g/dL (31-35); MEAN CORPUSCULAR VOLUME 77.8 fL (81-99); MONOCYTES # (AUTO) 1.4 (0.2-0.8); MONOCYTES % 13.7 % (4.4-11.3); NEUTROPHILS # (AUTO) 6.2 (2.1-6.9); PLATELET COUNT 303 x10e3/uL (140-360); RED BLOOD COUNT 5.05 x10e6/uL (4.3-5.7); RED CELL DISTRIBUTION WIDTH 15.4 % (11.7-14.4)
[2020-02-15 13:53] LABS: BLOOD UREA NITROGEN 14 mg/dL (7-26); BUN/CREATININE RATIO 10 (6-25); CALCIUM 8.7 mg/dL (8.4-10.2); CARBON DIOXIDE 23 mmol/L (22-29); CHLORIDE 107 mmol/L (98-107); CREATININE, SERUM 1.41 mg/dL (0.72-1.25); EST GLOMERULAR FILTRATION RATE > 60 ML/MIN (60-); GLUCOSE 93 mg/dL (74-118); SODIUM 136 mmol/L (136-145)
--- NOTE | 2020-02-15 14:03 | Diagnostic Imaging Report ---
EXAMINATION: CHEST 2 VIEWS INDICATION: Preop for prostate surgery ^20200215 ^1330 ^PRE OP COMPARISON: None FINDINGS: TUBES and LINES: None. LUNGS: Lungs are well inflated. Lungs are clear. There is no evidence of pneumonia or pulmonary edema. PLEURA: No pleural effusion or pneumothorax. HEART AND MEDIASTINUM: The cardiomediastinal silhouette is unremarkable. BONES AND SOFT TISSUES: No acute osseous lesion. Soft tissues are unremarkable. UPPER ABDOMEN: No free air under the diaphragm. IMPRESSION: No acute thoracic abnormality. Signed by: Dr. Krishna De La Cruz M.D. on 02/15/2020 2:00 PM
[~2020-02-18] VITALS: Ht 185.4 cm; Wt 105.7 kg
[2020-02-18] MEDS ORDERED: CEFTRIAXONE SOD 1 GM/NS 50 ML 50 ML IV ONE (09:31)
[2020-02-18] MEDS ORDERED: GENTAMICIN 80MG/NS 100 ML 200 ML IV ONE (09:31)
[2020-02-18] MEDS ORDERED: IOPAMIDOL 300MG/ML 50ML INFUS..BTL IV ONE (10:16)
[2020-02-18] MEDS ORDERED: B&O 60MG R/S 60 MG SUPP PR ONE (10:17)
[2020-02-18] MEDS ORDERED: MEPERIDINE HCL INJ 25 MG/ML VIAL ONE ×2 (12:32→13:05)
[2020-02-18] MEDS ORDERED: PHENAZOPYRIDINE HCL 100 MG TAB PO PRN (13:00)
[2020-02-18] MEDS ORDERED: DIPHENHYDRAMINE HCL 25 MG CAP PO PRN (13:30)
[2020-02-18] MEDS ORDERED: ONDANSETRON HCL INJ 2MG/ML 2ML 2 MG/ML VIAL IV PRN (13:30)
[2020-02-18] MEDS ORDERED: B&O 60MG R/S 60 MG SUPP PR PRN (13:30)
[2020-02-18] MEDS ORDERED: HYDROMORPHONE 1MG/1ML INJ ONE (13:42)
--- OUTSIDE RECORDS SUMMARY | 2020-02-18 14:17 | XMS REPORT | Continuity of Care Document ---
Author Author [facility] t Organization [facility] t Address [address] [place] [address] Phone Unavailable Care Team Providers Care Business Management Analyst Name Role Phone Lashaun SCHILLING PCP HAMPEL, CAROL Attphys Unavailable NAVARRETE, ROWDY, ATTENDING UROLOGIST Attphys Unavailable Payers Payer Name Policy Type Policy Number Effective Date Expiration Date S ource Problems Condition Name Condition Details Condition Category Status Onset Date Resolution Date Last Treatment Date Treating Clinician Comments Source Retention of urine Problem Active [facility] Urinary tract infection Problem Active [facility] Benign prostatic hyperplasia Problem Active [facility] Problem with Smith catheter Problem Active [facility] Allergies, Adverse Reactions, Alerts Allergy Name Allergy Type Status Severity Reaction(s) Onset Date Inacti ve Date Treating Clinician Comments Source No Known Allergies DA Active U 2019-11-01 00:00:00 [facility] ALMONDS DA Active U 2018-11-02 00:00:00 [facility] No Known Contrast Allergies DA Active U 2005-06-06 00:00: 00 [facility] No Known Drug Allergies DA Active U 2005-06-06 00:00:00 [facility] No Known Food Allergies DA Active U 2005-06-06 00:00:00 [facility] No Known Other Allergies DA Active U 2005-06-06 00:00:00 [facility] No Known Drug Intolerances DA Active U 2002-01-08 00:00:0 0 [facility] Social History Social Habit Start Date Stop Date Quantity Comments Source Sex Assigned At 1950 00:00:00 1950 00:00:00 Male [facility] Medications Ordered Medication Name Filled Medication Name Start Date Stop Da te Current Medication? Ordering Clinician Indication Dosage Frequency Signature (SIG) Comments Components Source Cefdinir (Omnicef) 300 Mg CAPSULE Cefdinir (Omnicef) 300 Mg CAPSULE 2020-02-14 06:25:00 2020-02-15 00:00:00 No 1 Twice A Day for Urine Infection [facility] Nitrofurantoin Monohyd/M-Cryst (Macrobid 100 Mg Capsul e) 100 Mg CAPSULE Nitrofurantoin Monohyd/M-Cryst (Macrobid 100 Mg Capsule) 100 Mg CAPSULE 2020-02-05 21:07:00 2020-02-15 00:00:00 No 100 Twice Daily With Meals [facility] Tamsulosin HCl - 0.4 MG Oral Capsule Tamsulosin HCl - 0.4 MG Oral C apsule Yes [facility] Acetaminophen/Codeine Phosphate (Tylenol # 3*) 1 Ea TA B Acetaminophen/Codeine Phosphate (Tylenol # 3*) 1 Ea TAB Yes 1 Vijay y [facility] Cefdinir (Omnicef) 300 Mg CAPSULE Cefdinir (Omnicef) 300 Mg CAPSULE Yes 300 Twice A Day [facility] Finasteride Finasteride Yes 5 Daily [facility] Fluconazole Fluconazole Yes 100 Daily [facility] Levofloxacin Levofloxacin Yes 750 Daily [facility] Oxybutynin Chloride Oxybutynin Chloride Yes 5 Twice A Day [facility] Sulfamethoxazole/Trimethoprim (Bactrim Ds Tablet) 1 Ea ch TABLET Sulfamethoxazole/Trimethoprim (Bactrim Ds Tablet) 1 Each TABLET Yes 1 Twice A Day [facility] Tamsulosin Hcl (Flomax*) 0.4 Mg CAP Tamsulosin Hcl (Flomax*) 0.4 Mg C AP Yes .[address] [facility] Vital Signs Vital Name Observation Time Observation Value Comments Source Oxygen saturation by Pulse oximetry 2020-02-15 17:55:00 97 /min [facility] Weight 2020-02-15 17:55:00 236 [lb_av] [facility] BMI (Body Mass Index) 2020-02-15 17:55:00 31.1 kg/m2 [facility] Oxygen saturation by Pulse oximetry 2020-02-14 06:00:00 98 /min [facility] 2020-02-14 06:00:00 240 [lb_av] [facility] BMI (Body Mass Index) 2020-02-14 06:00:00 31.7 kg/m2 [facility] Oxygen saturation by Pulse oximetry 2020-02-05 20:40:00 98 /min [facility] Weight 2020-02-05 20:40:00 237 [lb_av] [facility] BMI (Body Mass Index) 2020-02-05 20:40:00 31.3 kg/m2 [facility] Systolic blood pressure 2019-11-04 09:19:00 181 mm[Hg] Loca tion: DONAVON; Position: Standing [facility] Diastolic blood pressure 2019-11-04 09:19:00 98 mm[Hg] Loc ation: LUE; Position: Standing [facility] Body height 2019-11-04 09:19:00 73 [in_us] [facility] Weight 2019-11-04 09:19:00 240 [lb_av] [facility] Body mass index (BMI) [Ratio] 2019-11-04 09:19:00 31.66 kg/m2 [facility] Body temperature 2019-11-04 09:19:00 99 [degF] Method: Temporal [facility] Heart Rate 2019-11-04 09:19:00 114 /min [facility] Respiratory rate 2019-11-04 09:19:00 18 /min [facility] Procedures Procedure Date / Time Performed Performing Clinician Sourmarcos e INSERT TEMP BLADDER CATH 2020-02-05 00:00:00 [facility] Plan of Care Planned Activity Planned Date Details Comments Source Instructions Smith Catheter Care [facility] Encounters Start Date/Time End Date/Time Encounter Type Admission Type [facility] Facility Care Department Encounter ID Source 2020-02-15 18:29:00 2020-02-15 18:29:00 Registered Emergency Room [facility] [id number] [facility] 2020-02-14 06:10:00 2020-02-14 06:42:00 Departed Emergency Room [facility] [id number] [facility] 2020-02-05 21:21:00 2020-02-05 21:43:00 Departed Emergency Room [facility] [id number] [facility] 2019-11-04 09:30:00 2019-11-04 09:30:00 Appointment; ROWDY NAVARRETE APRN TRAN, JUSTINE, APRN [facility] Urology - [facility] [id number] [facility] Results Test Description Test Time Test Comments Results Result Comments Source CHEST 2 VIEWS 2020-02-15 13:59:00 [facility]PY[facility] MENJIVAR Mannie : 1950 Sex: M [facility] [address] [address] Patient Name: YOHANNES TRIPP MR #: [id number] : 1950 Age/Sex: 69/M Req #: [id number] Adm Physician: Ordered by: CAROL CHRIS MD Report #: [id number] Location: OR Room/Bed: Procedure: [id number] DX/CHEST 2 VIEWS Exam Date: 02/15/20 Exam [...] RARE per HPF NONE Urine Source? CatheterURINALYSIS [id number] 21:15:00* Test Item Value Reference Range Interpretation [...] per HPF NONE Urine Source? CatheterBASIC METABOLIC [id number] 20:57:00* Test Item Value Reference Range Interpretation [...] CA) 8.4 mg/dL 8.0-10.5 N CBC W/AUTO [id number] 20:49:00* Test Item Value Reference Range Interpretation [...] = BA#) 0.04 K/mm3 0.0-0.2 N URINALYSIS [id number] 23:01:00* Test Item Value Reference Range Interpretation [...] per HPF NONE Urine Source? Clean CatchURINALYSIS [id number] 22:58:00* Test Item Value Reference Range Interpretation [...] HPF NONE Urine Source? Clean CatchCOMPREHENSIVE METABOLIC [id number] 22:46:00* Test Item Value Reference Range Interpretation [...] ALKP) 78 U/L 50-139 N COMPREHENSIVE METABOLIC [id number] 22:35:00* Test Item Value Reference Range Interpretation [...] code = ALKP) IUnit/L 45-117 CBC W/AUTO [id number] 22:26:00* Test Item Value Reference Range Interpretation [...] code = BA#) 0.02 K/mm3 0.0-0.2 N PROSTATE,[id number] 15:08:00 RUN DATE: 11/06/18 [facility] PAGE 1 RUN TIME: 1508 Specimen Inqui ry RUN USER: INTERFACE PATIENT: YOHANNES TRIPP ACCT #: V [id number] LOC: [place] U #: [id number] AGE/SX: 67/M ROOM: RE11/04/18REG DR: Edis Sosa : 54 BED: DIS: STATUS: [facility] TLOC: SPEC #: [id number] RECD: 11/04/18 STATUS: JENNYFER BACK #: [id number] ROSANGELA: 11/04/18- SUBM DR: Edis Sosa ENTERED: 11/04/18-1112 SP TYPE: BX PROS OTHR DR: Marcos Schilling MD ORDERED: GROSS COPIES TO: Edis Sosa [address] [place], [place] [id number] [place] [address] [address] [place] [address] MARKERS: INTRADEPARTMENTAL CONSULT PROCEDURES: GROSS [...] ON NEXT P AGE RUN DATE: 11/06/18 [facility] PAGE 2 RUN TIME: 1508 Specime n Inquiry RUN USER: INTERFACE SPEC #: [id number] PATIENT: YOHANNES LEON #[id number] (Continued) FINAL D IAGNOSIS Prostate, left base [...] ON NEX T PAGE RUN DATE: 11/06/18 [employer] PAGE 3 RUN TIME: 1508 Spec imen Inquiry RUN USER: INTERFACE SPEC #: [id number] PATIENT: YOHANNES PRETTY #[id number] (Continued) FINAL DIAGNOSIS (Continued) [facility]/ D [id number] MACROSCOPIC The first specimen is labeled "right [...] ON NEXT PAGE RUN DATE : 11/06/18 [facility] PAGE 4 RUN TIME: 1508 Specimen Inquiry RUN USER: INTERFACE SPEC #: [id number] PATIENT: YOHANNES TRIPP #V [id number] (Continued) MACROSCOPIC (Continue d) The twelfth specimen is labeled "left apex lateral" and consists of on e moss soft tissue core biopsy measuring 1.0 and 1.1 cm in length by 0.1 cm in diameter, submitted as (12). GROSS PERFORMED AT [facility] [address] [place] [address] (p)[phone] MICROSCOPIC All of the stains, including an y controls performed, stain appropriately. MICROSCOPIC PERFORMED AT [facility] [address] [place] [address] (p)[phone] PERFORMING SITE Diagnosis performed a t: [facility] [address] [place] [address] -- Signed SIGNATURE ON FILE Gale Renteria MD 11/06/18 1508 EN D OF REPORT - XR CHEST 2 [id number] 07:15:00 FAX: Edis Diaz [phone] [place]: B : [facility] FAX: Dolores Johnson MD [phone] Name: YOHANNES TRIPP [facility] : 1950 Age/S: 67/M [address] [facility] Unit #: [id number] Loc: [place] [address] Phys: Edis Sosa Acct: [id number] Dis Date: Status: REG [facility] PHONE #: [phone] Exam Date: 11/04/2018 0656 FAX #: [phone] Reason: PRE-OP EXAMS: CPT CODE: [id number] XR CHEST 2 V 09369 HISTORY: PRE-OP TECHNIQUE: AP chest x-ray COMPARISON: [...] (0718) PAGE 1 Signed Report BASIC METABOLIC [id number] 07:05:00* Test Item Value Reference Range Interpretation [...] CA) 9.4 mg/dL 8.5-10.1 N CBC W/AUTO [id number] 07:04:00* Test Item Value Reference Range Interpretation [...] NRBC#) 0.00 K/mm3 0.0-0.1 N BASIC METABOLIC [id number] 07:02:00* Test Item Value Reference Range Interpretation [...]
--- NOTE | 2020-02-18 14:43 | NUR ---
PT ARRIVED TO ROOM 103. PT AWAKE, ALERT, AT BEDSIDE. PT IN STABLE CONDITION.
[2020-02-18 15:23] VITALS: BP 157/105
[2020-02-18 15:49] LABS: BASOPHILS % 0.5 % (0.0-1.0); EOSINOPHILS # (AUTO) 0.1 (0.0-0.4); EOSINOPHILS % 1.7 % (0.0-6.0); HEMATOCRIT 38.6 % (38.2-49.6); HEMOGLOBIN 11.7 g/dL (14.0-18.0); LYMPHOCYTES # (AUTO) 0.9 (1.0-3.2); LYMPHOCYTES % 13.5 % (18.0-39.1); MEAN CORPUSCULAR HEMOGLOBIN 23.8 pg (28-32); MEAN CORPUSCULAR HGB CONC 30.3 g/dL (31-35); MEAN CORPUSCULAR VOLUME 78.6 fL (81-99); MONOCYTES # (AUTO) 0.5 (0.2-0.8); MONOCYTES % 7.5 % (4.4-11.3); NEUTROPHILS # (AUTO) 5.1 (2.1-6.9); NEUTROPHILS % 76.2 % (38.7-80.0); PLATELET COUNT 338 x10e3/uL (140-360); RED BLOOD COUNT 4.91 x10e6/uL (4.3-5.7)
[2020-02-18 16:04] LABS: ANION GAP 12.4 mmol/L (8-16); BLOOD UREA NITROGEN 11 mg/dL (7-26); BUN/CREATININE RATIO 9 (6-25); CALCIUM 8.3 mg/dL (8.4-10.2); CARBON DIOXIDE 24 mmol/L (22-29); CHLORIDE 108 mmol/L (98-107); CREATININE, SERUM 1.26 mg/dL (0.72-1.25); EST GLOMERULAR FILTRATION RATE > 60 ML/MIN (60-); GLUCOSE 105 mg/dL (74-118); POTASSIUM 4.4 mmol/L (3.5-5.1); SODIUM 140 mmol/L (136-145)
[2020-02-18] MEDS: D5.45%NS/KCL 20MEQ 1,000 ML IV SCH (16:08)
[2020-02-18] MEDS: ACETAMINOPHEN/CODEINE 300MG - 30MG TAB PO PRN (16:22)
[2020-02-18 16:28] VITALS: BP 157/105
[2020-02-18] MEDS ORDERED: DOCUSATE SODIUM 100 MG CAP PO SCH (17:00)
[2020-02-18 20:00] VITALS: BP 131/74
[2020-02-19] VITALS (8 sets, daily range): BP systolic 105–156; BP diastolic 74–88
[2020-02-19] MEDS: D5.45%NS/KCL 20MEQ 1,000 ML IV SCH ×4 (00:42→20:35)
[2020-02-19] MEDS: ACETAMINOPHEN/CODEINE 300MG - 30MG TAB PO PRN (00:47)
--- NOTE | 2020-02-19 04:19 | NUR ---
H&P cc: BPH HPI: 69yoM, PCP , developed BPH, here for management via TURP. Underwent procedure, now recovering. Pain controlled per pt. PMH: BPH, obesity, left orthitis, UTI, nocturia, epididymo-orchitis. PShx:---- Allergies; see emr Fh/Sh; ; no cigs meds; see MAR ROS; no f/c/s/N/V/D/ROJAS/cp/sob/skin rash/confusion/dizzines/vision changes/mood changes vs revd PE tired appearing anicteric ns1s2 mod bs soft nt nd GENAO with pink urine no leg edema skin dry n. affect labs/meds revd A/P: BPH- s/p TURP; flomax Obesity- screen for DM; check lipids BMI 30- as above Prop: scd dispo; f/u AVERY PELLETIER MD, PHD.
[2020-02-19] MEDS ORDERED: DOCUSATE SODIUM 100 MG CAP PO PRN (04:30)
[2020-02-19] MEDS ORDERED: ACETAMINOPHEN 325 MG TAB PO PRN (04:30)
[2020-02-19 05:01] LABS: BASOPHILS # (AUTO) 0.1 (0.0-0.1); BASOPHILS % 0.9 % (0.0-1.0); EOSINOPHILS # (AUTO) 0.2 (0.0-0.4); EOSINOPHILS % 4.2 % (0.0-6.0); HEMATOCRIT 34.1 % (38.2-49.6); HEMOGLOBIN 10.4 g/dL (14.0-18.0); LYMPHOCYTES # (AUTO) 1.1 (1.0-3.2); LYMPHOCYTES % 18.6 % (18.0-39.1); MEAN CORPUSCULAR HEMOGLOBIN 23.8 pg (28-32); MEAN CORPUSCULAR HGB CONC 30.5 g/dL (31-35); MONOCYTES # (AUTO) 0.8 (0.2-0.8); MONOCYTES % 13.2 % (4.4-11.3); NEUTROPHILS # (AUTO) 3.6 (2.1-6.9); NEUTROPHILS % 62.4 % (38.7-80.0); PLATELET COUNT 309 x10e3/uL (140-360); RED BLOOD COUNT 4.37 x10e6/uL (4.3-5.7); RED CELL DISTRIBUTION WIDTH 15.1 % (11.7-14.4)
[2020-02-19 05:26] LABS: BLOOD UREA NITROGEN 9 mg/dL (7-26); BUN/CREATININE RATIO 8 (6-25); CALCIUM 7.8 mg/dL (8.4-10.2); CARBON DIOXIDE 23 mmol/L (22-29); CHLORIDE 107 mmol/L (98-107); CREATININE, SERUM 1.16 mg/dL (0.72-1.25); EST GLOMERULAR FILTRATION RATE > 60 ML/MIN (60-); GLUCOSE 106 mg/dL (74-118); SODIUM 137 mmol/L (136-145)
--- NOTE | 2020-02-19 07:00 | NUR ---
RECEIVED PATIENT RESTING IN BED NO S/S OF DISTRESS. BED LOW, WHEELS LOCKED, SIDE RAILS X2. CALL LIGHT IN REACH WILL CONTINUE TO MONITOR PATIENT.
--- NOTE | 2020-02-19 07:08 | NUR ---
GENAO CARE PROVIDED VIA CASTILE SOAP WIPES
--- NOTE | 2020-02-19 07:15 | NUR ---
REPORT GIVEN TO DAYSHIFT NURSE. ALERT AND ORIENTED. RESTING IN BED. NO SIGNS IV INFILTRATION. BED LOCKED AND IN LOW POSITION. CALL LIGHT WITHIN REACH.
[2020-02-19] MEDS: TAMSULOSIN HCL 0.4 MG CAP PO SCH (08:23)
[2020-02-19] MEDS: FLUCONAZOLE 100 MG TAB PO SCH (08:23)
[2020-02-19] MEDS: FINASTERIDE 5 MG TAB PO SCH (08:23)
[2020-02-19] MEDS: CEFTRIAXONE SOD 1 GM/NS 50 ML 50 ML IV SCH (09:36)
--- NOTE | 2020-02-19 11:07 | Operative Report ---
DATE OF PROCEDURE: 02/18/2020 SURGEON: Zia Rdoriguez MD PREOPERATIVE DIAGNOSES: 1. Huge obstructing BPH. 2. Urinary tract infections. POSTOPERATIVE DIAGNOSES: 1. Huge obstructing BPH. 2. Urinary tract infections. OPERATIONS PERFORMED: 1. Cystourethroscopy with right ureteral catheterization and retrograde ureteropyelography (separate procedure performed for the urinary tract infections). 2. Interpretation of retrograde ureteropyelography, no radiologist present. 3. Supervision of fluoroscopy, no radiologist present. 4. Cystourethroscopy with 2nd stage transurethral resection of the prostate utilizing plasma loop. ANESTHESIA: General. COMPLICATIONS: None. CLINICAL SUMMARY: Demetrius Leonard is a 69-year-old man with a huge prostate. His prostate size was estimated at 150 mL by transrectal ultrasonography. This was performed at the time of prostate biopsies. The patient underwent a transurethral resection of his prostate as a first-stage procedure couple months ago. At that point in time, we eliminated the massive median lobe that was intravesical. We were unable to locate the patient's ureteral orifices inadequately to perform retrograde pyelograms. At that point in time, we eliminated the patient's massive intravesical median lobe, but were unable to address the patient's bilobar prostatic hypertrophy due to the length of surgery and irrigation with TURP. The patient postoperatively, underwent a voiding trial that was successful in the office. However, the patient went back in urinary retention required a couple ER visits to manage that. The patient was brought to the operating room for the second-stage TURP. He is aware of the risks of bleeding, infection, injury to adjacent structures, incontinence, impotence, retrograde ejaculation, need for additional procedures and elected to proceed. OPERATIVE PROCEDURE IN DETAIL: Informed consent was verified, Demetrius Leonard was properly identified and taken to the operating room, placed on the cystoscopy table in supine position. Anesthesia was uneventfully begun. The patient was then carefully gently repositioned in dorsal lithotomy position with all pressure points well padded. His genitalia were prepared and draped in usual sterile fashion. The cystoscope sheath with the visual obturator in place was atraumatically inserted into the patient's urethra, it was guided unremarkably urethra through the prostate bed, which was significant for an extremely long prostatic urethra with bilobar prostatic hypertrophy with kissing lateral lobes. There was no intravesical median lobe noted. Careful panendoscopy was performed, but it was difficult to find the ureteral orifice due to irritation of the posterior bladder wall, most likely from the chronic Smith catheter, it has been resting in that region. We removed the cystoscope sheath, then utilized the continuous-flow laser sheath and then we were able to find the right ureteral orifice and retrograde ureteral pyelograms were performed utilizing an 8-Cameroonian cone-tipped catheter. We were unable to find the left ureteral orifice. Indigo carmine was given by the asbestos shingle inspector. We never saw blue coming from the right nor from the left ureteral orifice. Interpretation of retrograde ureteropyelography contrast was instilled in retrograde fashion on the right-hand side. There was dramatic J-hooking. There was also extremely impressive cephalad deviation of the ureteral orifice caused by the massive prostate pushing the bladder out of the pelvis. There was no chema hydronephrosis. There was ureteral tortuosity, unobstructed drainage was observed fluoroscopically. With the visual obturator, we introduced the extra long resectoscope into the patient's bladder and utilized a plasma loop electrode to resect from the bladder neck tube, but never passed the verumontanum and down the surgical capsule, this is extensive resection and the patient's prostate was massive. Nevertheless, pinpoint electrocautery was utilized to achieve hemostasis. We evacuated all chips and this was verified endoscopically. The resectoscope was withdrawn. A continuous irrigation hematuria catheter was then placed. It was irrigated to and fro to ensure it drained properly. It placed in continuous irrigation with fairly pink efflux. A belladonna and opium suppository were placed, revealing a large 50 g prostate, smooth and non-fluctuant without any nodules. The patient was then uneventfully reversed from anesthesia and taken to recovery room in stable condition. There were no complications to the procedure. He tolerated the procedure well. We will proceed with routine postoperative care and of course ongoing urologic followup. At some point in time, we may consider revisiting the prospect of attempting a left retrograde pyelograms after the patient has healed and is no longer Smith catheter dependent. Zia Rodriguez MD OH/MODL /[id number] cc: Dolores Babcock
--- NOTE | 2020-02-19 15:34 | NUR ---
SW received communication that pt's wanted to discuss options to fill out advance directive paper work.SW met with pt and . had the advance directives paper work in her hand that was provided by the hospital, she was expecting us to help complete paper work by finding appropriate witnesses. SW stated he is happy to answer any questions she has about completing the form however we are not supposed to sign as witness as we are considered part of the treatment team. can either get two witnesses sign it , some one who is not related by blood, or can have it notarized. said she will take it to the bank to get it notarized. No other concerns reported.
[2020-02-19] MEDS: ZOLPIDEM TARTRATE 5 MG TAB PO PRN (21:26)
[2020-02-20] VITALS (7 sets, daily range): BP systolic 140–157; BP diastolic 71–98
--- NOTE | 2020-02-20 03:30 | NUR ---
PERICARE PROVIDED. GENAO CARE PROVIDED VIA CASTILE SOAP WIPES.
[2020-02-20] MEDS: D5.45%NS/KCL 20MEQ 1,000 ML IV SCH ×3 (04:29→20:32)
[2020-02-20 05:28] LABS: BASOPHILS # (AUTO) 0.1 (0.0-0.1); BASOPHILS % 0.8 % (0.0-1.0); EOSINOPHILS # (AUTO) 0.3 (0.0-0.4); EOSINOPHILS % 4.5 % (0.0-6.0); HEMATOCRIT 36.7 % (38.2-49.6); HEMOGLOBIN 11.1 g/dL (14.0-18.0); LYMPHOCYTES # (AUTO) 1.6 (1.0-3.2); LYMPHOCYTES % 26.7 % (18.0-39.1); MEAN CORPUSCULAR HEMOGLOBIN 23.8 pg (28-32); MEAN CORPUSCULAR HGB CONC 30.2 g/dL (31-35); MEAN CORPUSCULAR VOLUME 78.6 fL (81-99); MONOCYTES # (AUTO) 0.7 (0.2-0.8); NEUTROPHILS # (AUTO) 3.4 (2.1-6.9); NEUTROPHILS % 56.2 % (38.7-80.0); PLATELET COUNT 359 x10e3/uL (140-360); RED BLOOD COUNT 4.67 x10e6/uL (4.3-5.7)
[2020-02-20 05:46] LABS: ANION GAP 11.4 mmol/L (8-16); BLOOD UREA NITROGEN 6 mg/dL (7-26); BUN/CREATININE RATIO 5 (6-25); CALCIUM 8.3 mg/dL (8.4-10.2); CARBON DIOXIDE 24 mmol/L (22-29); CHLORIDE 107 mmol/L (98-107); CREATININE, SERUM 1.13 mg/dL (0.72-1.25); EST GLOMERULAR FILTRATION RATE > 60 ML/MIN (60-); GLUCOSE 102 mg/dL (74-118); POTASSIUM 4.4 mmol/L (3.5-5.1); SODIUM 138 mmol/L (136-145)
--- NOTE | 2020-02-20 06:46 | NUR ---
REPORT GIVEN TO DAYSHIFT NURSE. ALERT AND ORIENTED. RESTING IN BED. NO SIGNS IV INFILTRATION. BED LOCKED AND IN LOW POSITION. CALL LIGHT WITHIN REACH.
--- NOTE | 2020-02-20 07:00 | NUR ---
RECEIVED PATIENT RESTING IN BED NO S/S OF DISTRESS. BED LOW, WHEELS LOCKED, SIDE RAILS X2. CALL LIGHT IN REACH WILL CONTINUE TO MONITOR PATIENT.
[2020-02-20] MEDS: FINASTERIDE 5 MG TAB PO SCH (08:18)
[2020-02-20] MEDS: TAMSULOSIN HCL 0.4 MG CAP PO SCH (08:18)
[2020-02-20] MEDS: FLUCONAZOLE 100 MG TAB PO SCH (08:18)
[2020-02-20] MEDS: CEFTRIAXONE SOD 1 GM/NS 50 ML 50 ML IV SCH (09:07)
--- NOTE | 2020-02-20 09:07 | NUR ---
IM- progess note O/N see below ROS; no f/c/s/N/V/D/ROJAS/cp/sob/skin rash/confusion/dizzines/vision changes/mood changes vs revd PE tired appearing anicteric ns1s2 mod bs soft nt nd GENAO with pink urine no leg edema skin dry n. affect labs/meds revd A/P: BPH- s/p TURP; flomax Obesity- screen for DM; check lipids BMI 30- as above Prop: scd dispo; f/u -15 Hypertensive- add low dose BB. AVERY PELLETIER MD, PHD.
[2020-02-20] MEDS: METOPROLOL TARTRATE 25 MG TAB PO SCH ×2 (09:27→21:06)
[2020-02-20] MEDS: ACETAMINOPHEN/CODEINE 300MG - 30MG TAB PO PRN (10:07)
--- NOTE | 2020-02-20 11:35 | NUR ---
Dr. Rodriguez rounding on patient. PRN bladder irrigation. Patient likely to discharge tomorrow.
[2020-02-20] MEDS: ZOLPIDEM TARTRATE 5 MG TAB PO PRN (21:06)
[2020-02-21 00:02] VITALS: BP 142/92
--- NOTE | 2020-02-21 03:35 | NUR ---
GENAO CARE PROVIDED USING CASTILE WIPES
[2020-02-21 04:53] VITALS: BP 152/85
[2020-02-21 04:59] LABS: BASOPHILS # (AUTO) 0.1 (0.0-0.1); EOSINOPHILS # (AUTO) 0.4 (0.0-0.4); EOSINOPHILS % 6.9 % (0.0-6.0); HEMATOCRIT 37.3 % (38.2-49.6); HEMOGLOBIN 11.4 g/dL (14.0-18.0); LYMPHOCYTES # (AUTO) 1.5 (1.0-3.2); LYMPHOCYTES % 25.4 % (18.0-39.1); MEAN CORPUSCULAR HEMOGLOBIN 23.9 pg (28-32); MEAN CORPUSCULAR HGB CONC 30.6 g/dL (31-35); MEAN CORPUSCULAR VOLUME 78.4 fL (81-99); MONOCYTES # (AUTO) 0.6 (0.2-0.8); MONOCYTES % 10.3 % (4.4-11.3); NEUTROPHILS # (AUTO) 3.2 (2.1-6.9); PLATELET COUNT 358 x10e3/uL (140-360); RED BLOOD COUNT 4.76 x10e6/uL (4.3-5.7); RED CELL DISTRIBUTION WIDTH 15.2 % (11.7-14.4)
[2020-02-21 05:16] LABS: ANION GAP 11.5 mmol/L (8-16); BLOOD UREA NITROGEN 7 mg/dL (7-26); BUN/CREATININE RATIO 7 (6-25); CALCIUM 8.6 mg/dL (8.4-10.2); CARBON DIOXIDE 24 mmol/L (22-29); CHLORIDE 108 mmol/L (98-107); CREATININE, SERUM 1.07 mg/dL (0.72-1.25); EST GLOMERULAR FILTRATION RATE > 60 ML/MIN (60-); GLUCOSE 107 mg/dL (74-118); POTASSIUM 4.5 mmol/L (3.5-5.1); SODIUM 139 mmol/L (136-145)
--- NOTE | 2020-02-21 07:04 | NUR ---
RECEIVED REPORT FROM OFF GOING NURSE. PT LYING IN BED, AWAKE, SEMI-FOWLERS POSITION, AND NO APPARENT DISTRESS.
[2020-02-21 08:07] VITALS: BP 160/96
[2020-02-21 08:25] VITALS: BP 160/96
[2020-02-21] MEDS: TAMSULOSIN HCL 0.4 MG CAP PO SCH (08:29)
[2020-02-21] MEDS: FLUCONAZOLE 100 MG TAB PO SCH (08:29)
[2020-02-21] MEDS: FINASTERIDE 5 MG TAB PO SCH (08:30)
[2020-02-21] MEDS: METOPROLOL TARTRATE 25 MG TAB PO SCH (08:30)
--- NOTE | 2020-02-21 09:40 | NUR ---
Smith removed per doctors order. Pt tolerated well.
--- NOTE | 2020-02-21 10:07 | NUR ---
Pt voided freely for the first since camejo removal. Pt had minimal pain while voiding.
[2020-02-21] MEDS: CEFTRIAXONE SOD 1 GM/NS 50 ML 50 ML IV SCH (10:15)
--- NOTE | 2020-02-21 10:47 | NUR ---
EDUCATED ABOUT IMM, SIGNED, FILED IN CHART, WITH COPY LEFT WITH FAMILY AT BEDSIDE.
[2020-02-21 12:05] VITALS: BP 159/94
--- NOTE | 2020-02-21 12:27 | NUR ---
D/C summary Principal Dx; BPH- s/p TURP; flomax Uncontrolled HTN Secondary Dx: Obesity- screen for DM; check lipids BMI 30- as above Prop: scd dispo; f/u 11-15 Hypertensive- add low dose BB. 11-16 uncontrolled HTN- titrate BB up. d/c home stable f/u pcp 2 days and urology 1 week d/c>35mins AVERY PELLETIER MD, PHD.
[2020-02-21] MEDS ORDERED: METOPROLOL TARTRATE 25 MG TAB PO SCH (13:00)
--- NOTE | 2020-02-21 15:02 | NUR ---
Dr Brandt Rodriguez advised okay to D/C from his stand point and make F/U appt in 1 month.
[2020-02-21] MEDS ORDERED: METOPROLOL TART25 MG PO (15:09)
[2020-02-21] MEDS ORDERED: COLACE100 MG PO (15:10)
--- NOTE | 2020-02-21 15:33 | NUR ---
Pt IV removed, no infiltration, no redness, and cath intact. Pt walked off floor for home and pt in no apparent distress.
== END 2020-02-21 15:33 | disposition home or self-care (01) | DRG 713 ==
LOC: OR 08:19 → PACU V 13:27 → MED/SURG 14:43
PROVIDERS: ADMIT Internal Medicine; ATTEND Internal Medicine
PROC: BT1D1ZZ Fluoroscopy of Right Kidney, Ureter and Bladder using Low Osmolar Contrast (ICD-10-PCS; 2020-02-18)
PROC: 0VB08ZZ Excision of Prostate, Via Natural or Artificial Opening Endoscopic (ICD-10-PCS; principal; 2020-02-18 11:00)
DX: N40.1 Benign prostatic hyperplasia with lower urinary tract symptoms (principal); N13.8 Other obstructive and reflux uropathy; R39.14 Feeling of incomplete bladder emptying; R33.8 Other retention of urine; R39.12 Poor urinary stream; E66.9 Obesity, unspecified; N45.3 Epididymo-orchitis; I10 Essential (primary) hypertension; Z68.30 Body mass index [BMI] 30.0-30.9, adult; Z20.828 Contact with and (suspected) exposure to other viral communicable diseases
CPT/HCPCS: 36415; 71046; 74420; 80048; 80061; 83036; 83735; 85025; 88305; 93005; C1758; J0696; J1170; J1580; J2175; U0002

== ENCOUNTER 2020-02-22 15:27 | Emergency (ER) | payer MEDICARE ==
[~2020-02-22] VITALS: Ht 185.4 cm; Wt 105.7 kg
[~2020-02-22 15:27] MED LIST changes: +COLACE100 MG PO; +METOPROLOL TART25 MG PO
--- NOTE | 2020-02-22 15:50 | Emergency Department Note ---
History of Present Illnes History of Present Illness Chief Complaint: Genitourinary History of Present Illness This is a 69 year old male Chief Complaint Comment PATIENT IN FROM HOME WITH COMPLAINTS OF BEING UNABLE TO URINATE SINCE CATHETER WAS PULLED YESTERDAY; PATIENT STATES THAT HE HAD A TURP PROCEDURE ON FRIDAY AND THE CATHETER WAS TAKEN OUT YESTERDAY, AND NOW HE IS UNABLE TO URINATE TODAY; STATES THAT THE URINE WAS CLEAR YESTERDAY. Historian: Patient Arrival Mode: Car Pet House Sitter Required: No Onset (how long ago): day(s) Location: Bladder Quality: Cannot urinate Radiation: Reports non-radiation Severity: moderate Onset quality: sudden Duration (how long): day(s) (1) Timing of current episode: constant Progression: worsening Chronicity: new Context: Denies recent illness, Denies recent surgery Relieving factors: none Exacerbating factors: none Associated symptoms: Reports denies other symptoms Treatments prior to arrival: none Past Medical/Family History Physician Review I have reviewed the patient's past medical and family history. Any updates have been documented here. Past Medical History Recent Fever: No Clinical Suspicion of Infectio: No New/Unexplained Change in Ment: No Past Medical History: Hypertension Other Medical History: BPH Other Surgery: TURP, BIOPSY Social History Physically hurt or threatened: No Review of Systems Review of Systems Constitutional: Reports no symptoms EENTM: Reports no symptoms Cardiovascular: Reports no symptoms Respiratory: Reports no symptoms Gastrointestinal: Reports no symptoms Genitourinary: Reports as per HPI Musculoskeletal: Reports no symptoms Integumentary: Reports no symptoms Neurological: Reports no symptoms Psychological: Reports no symptoms Endocrine: Reports no symptoms Hematological/Lymphatic: Reports no symptoms Physical Exam Related Data Allergies: Coded Allergies: No Known Allergies (Unverified , 02/22/20) Triage Vital Signs Vital Signs Date Time Temp Pulse Resp B/P (MAP) Pulse Ox O2 Delivery O2 Flow Rate FiO2 02/22/20 15:38 97.1 92 18 157/93 97 Room Air Vital signs reviewed: Yes Physical Exam CONSTITUTIONAL Constitutional: Present well-developed, Present well-nourished HENT HENT: Present normocephalic, Present atraumatic, Present oropharynx clear/m oist, Present nose normal HENT L/R: Present left ext ear normal, Present right ext ear normal EYES Eyes: Reports PERRL, Reports conjunctivae normal NECK Neck: Present ROM normal PULMONARY Pulmonary: Present effort normal, Present breath sounds normal CARDIOVASCULAR Cardiovascular: Present regular rhythm, Present heart sounds normal, Present capillary refill normal, Present normal rate GASTROINTESTINAL Abdominal: Present soft, Present nontender, Present bowel sounds normal GENITOURINARY Genitourinary: Present exam deferred SKIN Skin: Present warm, Present dry MUSCULOSKELETAL Musculoskeletal: Present ROM normal NEUROLOGICAL Neurological: Present alert, Present oriented x 3, Present no gross motor or sensory deficits PSYCHOLOGICAL Psychological: Present mood/affect normal, Present judgement normal Assessment & Plan Medical Decision Making [facility] 69 y.o M PMH sig for recent TURP w/ Dr. Rodriguez. presents for urinary retention. Discussed w/ Dr. Rodriguez and will replace with [address] and he will f/u in clinic. Appropriate for DC. Assessment & Plan Final Impression: (1) Urinary retention Depart Disposition: HOME, SELF-CARE Last Vital Signs Date Time Temp Pulse Resp B/P (MAP) Pulse Ox O2 Delivery O2 Flow Rate FiO2 02/22/20 15:38 97.1 92 18 157/93 97 Room Air Home Meds Reported Medications Docusate Sodium (COLACE) 100 Mg Cap, 100 MG PO PRN, #30 CAP 02/21/20 Metoprolol Tartrate (METOPROLOL TARTRATE) 25 Mg Tablet, 25 MG PO Q12HR PRN for ELEVATED BLOOD PRESSURE, #30 TAB 02/21/20 Cefdinir (OMNICEF) 300 Mg Capsule, 300 MG PO BID, #10 CAP 02/15/20 Levofloxacin (LEVOFLOXACIN) 250 Mg Tablet, 750 MG PO DAILY, #5 TAB 02/15/20 Acetaminophen/Codeine* (TYLENOL # 3*) 1 Ea Tab, 1 TAB PO Q4HR PRN for MODERATE PAIN (4-6) 02/15/20 Fluconazole (FLUCONAZOLE) 100 Mg Tablet, 100 MG PO DAILY, #7 TAB 02/15/20 Finasteride (FINASTERIDE) 5 Mg Tablet, 5 MG PO DAILY, #30 TAB 02/15/20 Oxybutynin Chloride (OXYBUTYNIN CHLORIDE) 5 Mg Tablet, 5 MG PO BID, #30 TAB 02/15/20 Sulfamethoxazole/Trimethoprim (BACTRIM DS TABLET) 1 Each Tablet, 1 TAB PO BID, #60 TAB 02/15/20 Tamsulosin Hcl* (FLOMAX*) 0.4 Mg Cap, 0.4 MG PO DAILY, #30 CAP 02/15/20 LAUREL SHAVER MD Feb 22, 2020 15:50
--- OUTSIDE RECORDS SUMMARY | 2020-02-22 15:59 | XMS REPORT | Continuity of Care Document ---
Author Author Formerly [facility] t Organization Formerly [facility] t Address [address] [place] [address] Phone Unavailable Care Team Providers Care Auto Polisher Name Role Phone Lashaun SCHILLING PCP HAMPEL, CAROL Attphys Unavailable NAVARRETE, ROWDY, AIRPORT CLERK Attphys Unavailable Payers Payer Name Policy Type Policy Number Effective Date Expiration Date S ource Problems Condition Name Condition Details Condition Category Status Onset Date Resolution Date Last Treatment Date Treating Clinician Comments Source Retention of urine Problem Active [facility] Urinary tract infection Problem Active [facility] Benign prostatic hyperplasia Problem Active [facility] Problem with Smith catheter Problem Active [facility] Allergies, Adverse Reactions, Alerts Allergy Name Allergy Type Status Severity Reaction(s) Onset Date Inacti ve Date Treating Clinician Comments Source No Known Allergies DA Active U 2019-11-01 00:00:00 [facility] ALMONDS DA Active U 2018-11-02 00:00:00 [facility] No Known Contrast Allergies DA Active U 2005-06-06 00:00: 00 [facility] No Known Drug Allergies DA Active U 2005-06-06 00:00:00 [facility] No Known Food Allergies DA Active U 2005-06-06 00:00:00 [facility] No Known Other Allergies DA Active U 2005-06-06 00:00:00 [facility] No Known Drug Intolerances DA Active U 2002-01-08 00:00:0 0 [facility] Social History Social Habit Start Date Stop Date Quantity Comments Source Sex Assigned At 1950 00:00:00 1950 00:00:00 Male [facility] Medications Ordered Medication Name Filled Medication Name Start Date Stop Da te Current Medication? Ordering Clinician Indication Dosage Frequency Signature (SIG) Comments Components Source Cefdinir (Omnicef) 300 Mg CAPSULE Cefdinir (Omnicef) 300 Mg CAPSULE 2020-02-14 06:25:00 2020-02-15 00:00:00 No 1 Twice A Day for Urine Infection [facility] Nitrofurantoin Monohyd/M-Cryst (Macrobid 100 Mg Capsul e) 100 Mg CAPSULE Nitrofurantoin Monohyd/M-Cryst (Macrobid 100 Mg Capsule) 100 Mg CAPSULE 2020-02-05 21:07:00 2020-02-15 00:00:00 No 100 Twice Daily With Meals [facility] Tamsulosin HCl - 0.4 MG Oral Capsule Tamsulosin HCl - 0.4 MG Oral C apsule Yes [facility] Acetaminophen/Codeine Phosphate (Tylenol # 3*) 1 Ea TA B Acetaminophen/Codeine Phosphate (Tylenol # 3*) 1 Ea TAB Yes 1 Every 4 Hours as needed for Moderate Pain (4-6) [facility] Cefdinir (Omnicef) 300 Mg CAPSULE Cefdinir (Omnicef) 300 Mg CAPSULE Yes 300 Twice A Day [facility] Docusate Sodium (Colace) 100 Mg CAP Docusate Sodium (Colace) 100 Mg C AP Yes 100 As Needed [facility] Finasteride Finasteride Yes 5 Daily [facility] Fluconazole Fluconazole Yes 100 Daily [facility] Levofloxacin Levofloxacin Yes 750 Daily [facility] Metoprolol Tartrate Metoprolol Tartrate Yes 25 Every 12 Hours as needed for Elevated Blood Pressure [facility] Oxybutynin Chloride Oxybutynin Chloride Yes 5 Twice A Day [facility] Sulfamethoxazole/Trimethoprim (Bactrim Ds Tablet) 1 Ea ch TABLET Sulfamethoxazole/Trimethoprim (Bactrim Ds Tablet) 1 Each TABLET Yes 1 Twice A Day [facility] Tamsulosin Hcl (Flomax*) 0.4 Mg CAP Tamsulosin Hcl (Flomax*) 0.4 Mg C AP Yes .4 Daily [facility] Vital Signs Vital Name Observation Time Observation Value Comments Source Body Temperature 2020-02-21 12:05:00 97.8 [degF] [facility] Heart Rate 2020-02-21 12:05:00 76 /min [facility] Respiratory rate 2020-02-21 12:05:00 22 /min [facility] BP Systolic 2020-02-21 12:05:00 159 mm[Hg] [facility] BP Diastolic 2020-02-21 12:05:00 94 mm[Hg] [facility] Oxygen saturation by Pulse oximetry 2020-02-21 12:05:00 100 /min [facility] Weight 2020-02-18 15:17:00 233 [lb_av] [facility] BMI (Body Mass Index) 2020-02-18 15:17:00 30.7 kg/m2 [facility] Oxygen saturation by Pulse oximetry 2020-02-15 17:55:00 97 /min [facility] Weight 2020-02-15 17:55:00 236 [lb_av] [facility] BMI (Body Mass Index) 2020-02-15 17:55:00 31.1 kg/m2 [facility] Oxygen saturation by Pulse oximetry 2020-02-14 06:00:00 98 /min [facility] Weight 2020-02-14 06:00:00 240 [lb_av] [facility] BMI (Body Mass Index) 2020-02-14 06:00:00 31.7 kg/m2 [facility] Oxygen saturation by Pulse oximetry 2020-02-05 20:40:00 98 /min [facility] Weight 2020-02-05 20:40:00 237 [lb_av] [facility] BMI (Body Mass Index) 2020-02-05 20:40:00 31.3 kg/m2 [facility] Systolic blood pressure 2019-11-04 09:19:00 181 mm[Hg] Loca tion: LUE; Position: Standing [facility] Diastolic blood pressure 2019-11-04 09:19:00 98 mm[Hg] Loc ation: LUE; Position: Standing [facility] Body height 2019-11-04 09:19:00 73 [in_us] [facility] Weight 2019-11-04 09:19:00 240 [lb_av] [facility] Body mass index (BMI) [Ratio] 2019-11-04 09:19:00 31.66 kg/m2 [facility] Body temperature 2019-11-04 09:19:00 99 [degF] Method: Temporal [facility] Heart Rate 2019-11-04 09:19:00 114 /min [facility] Respiratory rate 2019-11-04 09:19:00 18 /min [facility] Procedures Procedure Date / Time Performed Performing Clinician [facility] e X-ray of chest, two views 2020-02-15 00:00:00 [facility] INSERT TEMP BLADDER CATH 2020-02-05 00:00:00 [facility] Plan of Care Planned Activity Planned Date Details Comments Source Instructions Infection Control [facility] Instructions TURP [facility] Encounters Start Date/Time End Date/Time Encounter Type Admission Type [facility] Facility Care Department Encounter ID Source 2020-02-18 13:27:00 2020-02-21 15:33:00 Discharged Inpatient 3 CAROL CHRIS [facility] [id number] [facility] 2020-02-15 18:29:00 2020-02-15 18:44:00 Departed Emergency Room [facility] [id number] [facility] 2020-02-14 06:10:00 2020-02-14 06:42:00 Departed Emergency Room [facility] [id number] [facility] 2020-02-05 21:21:00 2020-02-05 21:43:00 Departed Emergency Room [facility] [id number] [facility] 2019-11-04 09:30:00 2019-11-04 09:30:00 Appointment; ROWDY NAVARRETE APRN TRAN, JUSTINE, APRN UTP Urology - [facility] [id number] [facility] Results Test Description Test Time Test Comments Results Result Comments Source Blood leukocytes automated count (number/volume) 2020-02-21 04:35:00 Test Item White Blood Count (test code = 6690-2) 5.90 10*3/uL 4.8-10.8 [facility] erythrocytes automated count (number/volume)2020-02-21 04:35:00* Test Item Value Reference Range Interpretation Comments Red Blood Count (test code = 789-8) 4.76 10*6/mL 4.3-5.7 [facility] Alliance[facility] hemoglobin measurement (moles/volume)2020-02-21 04:35:00* Test Item Value Reference Range Interpretation Comments Hemoglobin (test code = 48025-2) 11.4 g/dL 14.0-18.0 [facility] AllianceAutomated blood hematocrit (volume fraction)2020-02-21 04:35:00* Test Item Value Reference Range Interpretation Comments Hematocrit (test code = 4544-3) 37.3 % 38.2-49.6 [facility] AllianceAutomated erythrocyte mean corpuscular [id number] 04:35:00* Test Item Value Reference Range Interpretation Comments Mean Corpuscular Volume (test code = 787-2) 78.4 81-99 [facility] AllianceAutomated erythrocyte mean corpuscular hemoglobin (mass per erythrocyte)2020-02-21 04:35:00* Test Item Value Reference Range Interpretation Comments Mean Corpuscular Hemoglobin (test code = 785-6) 23.9 pg 28-32 [facility] AllianceAutomated erythrocyte mean corpuscular hemoglobin concentration measurement (mass/volume)2020-02-21 04:35:00* Test Item Value Reference Range Interpretation Comments Mean Corpuscular Hemoglobin Concent (test code = 786-4) 30.6 g/dL 31-35 [facility] AllianceRDW FcdRf-Cpu4961-05-16 04:35:00* Test Item Value Reference Range Interpretation Comments Red Cell Distribution Width (test code = 01582-0) 15.2 % 11.7 -14.4 [facility] AllianceAutomated blood platelet count (count/volume)2020-02-21 04:35:00* Test Item Value Reference Range Interpretation Comments Platelet Count (test code = 777-3) 358 10*3/uL 140-360 [facility] AllianceAutomated blood segmented neutrophil count as percentage of total wfrzslelhf4953-87-37 04:35:00* Test Item Value Reference Range Interpretation Comments Neutrophils (%) (Auto) (test code = 12592-9) 55.0 % 38.7-80.0 [facility] AllianceAutomated blood lymphocyte count as percentage ot total bvyatbnhpx9728-01-15 04:35:00* Test Item Value Reference Range Interpretation Comments Lymphocytes (%) (Auto) (test code = 736-9) 25.4 % 18.0-39.1 [facility] AllianceAutomated blood monocyte count as percentage of total upsqktxkmw3088-19-05 04:35:00* Test Item Value Reference Range Interpretation Comments Monocytes (%) (Auto) (test code = 5905-5) 10.3 % 4.4-11.3 [facility] AllianceAutomated blood eosinophil count as percentage of total mqofbfceii0149-48-21 04:35:00* Test Item Value Reference Range Interpretation Comments Eosinophils (%) (Auto) (test code = 713-8) 6.9 % 0.0-6.0 [facility] AllianceAutomated blood basophil count as percentage of total johwvyyxzl7876-60-75 04:35:00* Test Item Value Reference Range Interpretation Comments Basophils (%) (Auto) (test code = 706-2) 1.0 % 0.0-1.0 [facility] AllianceFluoroscopic procedure less than one hour zxnwjqii5327-44-11 04:35:00* Test Item Value Reference Range Interpretation Comments IM GRANULOCYTES % (test code = IM GRANULOCYTES %) 1.4 % 0.0- 1.0 [facility] AllianceAutomated blood neutrophil count 2020-02-21 04:35:00* Test Item Value Reference Range Interpretation Comments Neutrophils # (Auto) (test code = 751-8) 3.2 2.1-6.9 [facility] AllianceBlood lymphocytes count (number/volume) 2020-02-21 04:35:00* Test Item Value Reference Range Interpretation Comments Lymphocytes # (Auto) (test code = 95773-6) 1.5 1.0-3.2 [facility] monocytes automated count (number/volume)2020-02-21 04:35:00* Test Item Value Reference Range Interpretation Comments Monocytes # (Auto) (test code = 742-7) 0.6 0.2-0.8 [facility] AllianceAutomated blood eosinophil count 2020-02-21 04:35:00* Test Item Value Reference Range Interpretation Comments Eosinophils # (Auto) (test code = 711-2) 0.4 0.0-0.4 [facility] AllianceAutomated blood basophil count (count/volume)2020-02-21 04:35:00* Test Item Value Reference Range Interpretation Comments Basophils # (Auto) (test code = 704-7) 0.1 0.0-0.1 [facility] AllianceFluoroscopic procedure less than one hour zebuiqil5130-60-69 04:35:00* Test Item Value Reference Range Interpretation Comments Absolute Immature Granulocyte (auto (leana t code = Absolute Immature Granulocyte (auto) 0.08 10*3/uL 0-0.1 [facility] or plasma sodium measurement (moles/volume)2020-02-21 04:35:00* Test Item Value Reference Range Interpretation Comments Sodium Level (test code = 2951-2) 139 mmol/L 136-145 [facility] or plasma potassium measurement (moles/volume)2020-02-21 04:35:00* Test Item Value Reference Range Interpretation Comments Potassium Level (test code = 2823-3) 4.5 mmol/L 3.5-5.1 [facility] or plasma chloride measurement (moles/volume)2020-02-21 04:35:00* Test Item Value Reference Range Interpretation Comments Chloride Level (test code = 2075-0) 108 mmol/L 98-107 [facility] or plasma carbon dioxide, total measurement (moles/volume)2020-02-21 04:35:00* Test Item Value Reference Range Interpretation Comments Carbon Dioxide Level (test code = 2028-9) 24 mmol/L 22- [facility] or plasma anion lzv5051-89-69 04:35:00* Test Item Value Reference Range Interpretation Comments Anion Gap (test code = 58611-7) 11.5 mmol/L 8- [facility] or plasma urea nitrogen measurement (mass/volume)2020-02-21 04:35:00* Test Item Value Reference Range Interpretation Comments Blood Urea Nitrogen (test code = 3094-0) 7 mg/dL 7- [facility] or plasma creatinine measurement (mass/volume)2020-02-21 04:35:00* Test Item Value Reference Range Interpretation Comments Creatinine (test code = 2160-0) 1.07 mg/dL 0.72-1.25 [facility] or plasma urea nitrogen/creatinine mass rxazc7891-36-43 04:35:00* Test Item Value Reference Range Interpretation Comments BUN/Creatinine Ratio (test code = 3097-3) 7 6-25 [facility] AllianceEstimated glomerular filtration rate (GFR) lhvszhhrvlktj8692-30-95 04:35:00* Test Item Value Reference Range Interpretation Comments Estimat Glomerular Filtration Rate (test code = 171355631) > 60 mL/ min >60 Ranges were taken from the National Kidney Disease Education Program and the [facility] literature.Reference ranges:60 or greater: Xhwuvb53-08 ( for 3 consecutive months): Chronic kidney disease 15 or less: Kidney failureTexas Health Harris Medical Hospital AllianceGlucose debsgvcxtyv7326-55-83 04:35:00* Test Item Value Reference Range Interpretation Comments Glucose Level (test code = FGB6795) 107 mg/dL 74-118 [facility] or plasma calcium measurement (mass/volume)2020-02-21 04:35:00* Test Item Value Reference Range Interpretation Comments Calcium Level (test code = 98714-7) 8.6 mg/dL 8.4-10.2 [facility] AllianceFluoroscopic procedure less than one hour unfikkoq8507-49-26 04:50:00* Test Item Value Reference Range Interpretation Comments Hemoglobin A1c Percent (test code = Hemoglobin A1c Percent) 5.5 % 4.0-7.0 [facility] or plasma triglyceride measurement (mass/volume)2020-02-19 04:50:00* Test Item Value Reference Range Interpretation Comments Triglycerides Level (test code = 2571-8) 351 mg/dL 0-149 [facility] or plasma cholesterol measurement (mass/volume)2020-02-19 04:50:00* Test Item Value Reference Range Interpretation Comments Cholesterol Level (test code = 2093-3) 176 mg/dL 0-199 Less than 200 mg/dL Low Lnsb787 - 239 mg/dL Borderline Rlgf836 m g/dl and greater High Risk [facility] or plasma cholesterol in LDL measurement (mass/volume) 2020-02-19 04:50:00* Test Item Value Reference Range Interpretation Comments LDL Cholesterol (test code = 2089-1) 84 mg/dL 60-130 [facility] or plasma cholesterol in HDL measurement (mass/volume)2020-02-19 04:50:00* Test Item Value Reference Range Interpretation Comments HDL Cholesterol (test code = 2085-9) 22 mg/dL 40-60 [facility] or plasma total cholesterol/cholesterol in HDL mass cnxal0220-01-78 04:50:00* Test Item Value Reference Range Interpretation Comments Cholesterol/HDL Ratio (test code = 9830-1) 8.0 3.9-4.7 [facility] or plasma magnesium measurement (mass/volume)2020-02-18 15:43:00* Test Item Value Reference Range Interpretation Comments Magnesium Level (test code = 46572-2) 1.8 mg/dL 1.3-2.1 [facility] AllianceCHEST 2 [id number] 13:59:00 [facility] 1950 Sex: M [place] [id number] Patient Name: YOHANNES TRIPP MR #: [id number] : 1950 Age/Sex: 69/M Req #: [id number] [facility] Physician: Ordered by: CAROL CHRIS MD Report #: [id number] Location: OR Room/Bed: Procedure: [id number] DX/CHEST 2 VIEWS Exam Date: 04/16/19 Exam Time: 1330 REPORT STATUS: Signed EXAMINATION: CHEST 2 VIEWS IN DICATION: Preop for prostate surgery 20200215 PRE OP COMPARISON: None FINDINGS: TUBES and LINES: None. LUNGS: Eva gs are well inflated. Lungs are clear. There is no evidence of pneumonia or pulmonary edema. PLEURA: No pleural effusion or pneumothorax. HEART AND MEDIASTINUM: The cardiomediastinal silhouette is unremarkable. BON ES AND SOFT TISSUES: No acute osseous lesion. Soft tissues are unremarkable. UPPER ABDOMEN: No free air under the diaphragm. IMPRESSION: No acute thoracic abnormality. Signed by: Dr. London De La Cruz M.D. on 020 2:00 PM Dictated By: LONDON DE LA CRUZ MD, MD 1400 Transcribed By: COLE on 02/15/20 1400 COPY TO: CAROL CHRIS MD Fluoroscopic procedure less than one hour cjttoquz9564-04-24 13:57:00* Test Item Value Reference Range Interpretation Comments Coronavirus (PCR) (test code = Coronavirus (PCR)) NOT DETECTED NOTD ETECTED SARS-CoV-2 PCRHologic Aptima SARS-CoV-2 assay is a nucleic amplification test in tended for the qualitative detection of RNA from SARS-CoV-2 from nasopharyngeal (SKEIN BANDER) specimens. It is used under Emergency Use Authorization (EUA) by FDA.A posi tive result is indicative of the presence of SARS-CoV-2 RNA. Clinical correlatio n with patient history and other diagnostic information is necessary to determin e patient infection status.A negative (Not Detected) result does not preclude SA RS-CoV-2 infection. Clinical Correlation with patient history and other diagnost ic information should be used in patient management decisions.Invalid: Unable to generate a valid result on this specimen. Please submit a new specimen for repr at testing oc clinically indicated.Tesing performed by:[facility] Laboratory Services[address] [place] [id number] [id number], Brody jeffers MD, PhDTexas Health Harris Medical Hospital AllianceBacterial urine culture 2020-02-14 06:22:00* Test Item Value Reference Range Interpretation Comments Urine Culture (test code = 630-4) [facility] Center[facility] [id number] 21:22:00* Test Item Value Reference Range Interpretation Comments [...] RARE per HPF NONE Urine Source? CatheterURINALYSIS [id number] 21:15:00* Test Item Value Reference Range Interpretation [...] per HPF NONE Urine Source? CatheterBASIC METABOLIC [id number] 20:57:00* Test Item Value Reference Range Interpretation [...] CA) 8.4 mg/dL 8.0-10.5 N CBC W/AUTO [id number] 20:49:00* Test Item Value Reference Range Interpretation [...] = BA#) 0.04 K/mm3 0.0-0.2 N URINALYSIS [id number] 23:01:00* Test Item Value Reference Range Interpretation [...] per HPF NONE Urine Source? Clean CatchURINALYSIS [id number] 22:58:00* Test Item Value Reference Range Interpretation [...] HPF NONE Urine Source? Clean CatchCOMPREHENSIVE METABOLIC [id number] 22:46:00* Test Item Value Reference Range Interpretation [...] ALKP) 78 U/L 50-139 N COMPREHENSIVE METABOLIC [id number] 22:35:00* Test Item Value Reference Range Interpretation [...] code = ALKP) IUnit/L 45-117 CBC W/AUTO [id number] 22:26:00* Test Item Value Reference Range Interpretation [...] code = BA#) 0.02 K/mm3 0.0-0.2 N PROSTATE,[id number] 15:08:00 RUN DATE: 11/06/[address] [place] [facility] PAGE 1 RUN TIME: 1508 Specimen Inqui ry RUN USER: INTERFACE PATIENT: YOHANNES TRIPP ACCT #: [id number] LOC: [place] U #: [id number] AGE/SX: 67/M ROOM: RE11/04/18REG DR: Edis Sosa : 54 BED: DIS: [facility]US[facility] TLOC: SPEC #: [id number] RECD: 11/04/18 STATUS: JENNYFER NAZANIN #: [id number] ROSANGELA: 11/04/18 DR: Edis Sosa ENTERED: 11/04/18-1111 SP TYPE: BX PROS OTHR DR: Sal Schilling MD ORDERED: GROSS COPIES TO: Edis Sosa [address] [place] [address] [address] [place] [address] [place] [address] [facility] [address] [place] [address] MARKERS: INTRADEPARTMENTAL CONSULT PROCEDURES: SHANELL (11/06/18-1332) TISSUES: 1. PROSTATE, NOS - RIGHT [...] ON NEXT P AGE RUN DATE: 11/06/[address] [place] [facility] PAGE 2 RUN TIME: 1508 Specime n Inquiry RUN USER: INTERFACE SPEC #: [id number] PATIENT: MALKA MENJIVARYOHANNES #[id number] (Continued) FINAL D IAGNOSIS Prostate, left base [...] ON NEX T PAGE RUN DATE: 11/06/18 [facility] PAGE 3 RUN TIME: 1508 Spec imen Inquiry RUN USER: INTERFACE SPEC #: [id number] PATIENT: TERESA HODGELUCINAYOHANNES Thakur #[id number] (Continued) FINAL DIAGNOSIS (Continued) [facility]/ D [id number] MACROSCOPIC The first specimen is labeled "right [...] ON NEXT PAGE RUN DATE : 11/06/18 [facility] PAGE 4 RUN TIME: 1508 Specimen Inquiry RUN USER: INTERFACE SPEC #: [id number] PATIENT: YOHANNES TRIPP #[id number] (Continued) MACROSCOPIC (Continue d) The twelfth specimen is labeled "left apex lateral" and consists of on e moss soft tissue core biopsy measuring 1.0 and 1.1 cm in length by 0.1 cm in diameter, submitted as (12). GROSS PERFORMED AT [facility] [address] [place] [address] (p)[phone] MICROSCOPIC All of the stains, including an y controls performed, stain appropriately. MICROSCOPIC PERFORMED AT [facility] [address] [place] [address] (p)[phone] PERFORMING SITE Diagnosis performed a t: [facility] , [place] [address] [facility] [place] [address] -- Signed SIGNATURE ON FILE Gale Renteria MD 11/06/18 1508 EN D OF REPORT - XR CHEST 2 [id number] 07:15:00 FAX: Edis Diaz [phone] [place]: St: [facility] FAX: Dolores Johnson MD [phone] Name: YOHANNES TRIPP [facility] : 1950 Age/S: 67/M [address] [facility] [facility] Unit #: [id number] Loc: [place] [address] Phys: Edis Sosa Acct: [id number] Dis Date: Status: REG [facility] [place] PHONE #: [phone] Exam Date: 11/04/201856 FAX #: [phone] Reason: PRE-OP EXAMS: CPT CODE: [id number] XR CHEST 2 V 44785 HISTORY: PRE-OP TECHNIQUE: AP chest x-ray COMPARISON: [...] By: [email or web address] Orig Print D/T: S: 11/04/2018 (0700) PAGE 1 Signed Report BASIC METABOLIC [id number] 07:05:00* Test Item Value Reference Range Interpretation [...] CA) 9.4 mg/dL 8.5-10.1 N CBC W/AUTO [id number] 07:04:00* Test Item Value Reference Range Interpretation [...] NRBC#) 0.00 K/mm3 0.0-0.1 N BASIC METABOLIC [id number] 07:02:00* Test Item Value Reference Range Interpretation [...]
== END 2020-02-22 16:36 | disposition home or self-care (01) ==
LOC: ER 15:44
DX: R33.9 Retention of urine, unspecified (principal); I10 Essential (primary) hypertension
CPT/HCPCS: 51700; 99282

== ENCOUNTER 2020-03-03 23:52 | Emergency (ER) | payer MEDICARE ==
[~2020-03-03] VITALS: Ht 185.4 cm; Wt 105.7 kg
--- NOTE | 2020-03-04 00:02 | NUR ---
22fr coude inserted using sterile technique. 1000cc cloudy urine return noted.
[2020-03-04] MEDS ORDERED: LIDOCAINE JELLY 2% 10ML URO-JET ONE (00:04)
--- NOTE | 2020-03-04 00:05 | Emergency Department Note ---
History of Present Illnes History of Present Illness Chief Complaint: Genitourinary History of Present Illness This is a 69 year old male REPORTS DIFFICULTY URINATING X16 HRS; PT HAD INDWELLING GENAO CATHETER REMOVED 2 DAYS AND REPORTS DYSURIA SINCE THIS TIME; STATES HE HAS HAD TROUBLE URINATING SINCE 9 AM, PT HAD A TURP 2 WEEKS AGO AND HAD GENAO REMOVED THIS PAST FRIDAY. . Historian: Patient Arrival Mode: Car Manager Housekeeping Required: No Onset (how long ago): hour(s) (16) Location: SUPRPUBIC Quality: PAIN, UNABLE TO URINATE Radiation: Reports non-radiation Severity: moderate Onset quality: gradual Duration (how long): hour(s) (16) Timing of current episode: constant Progression: worsening Chronicity: recurrent Context: Reports recent surgery (TURP 2 WEEKS AGO) Associated symptoms: Reports denies other symptoms Past Medical/Family History Physician Review I have reviewed the patient's past medical and family history. Any updates have been documented here. Past Medical History Recent Fever: No Clinical Suspicion of Infectio: No New/Unexplained Change in Ment: No Past Medical History: Hypertension Other Medical History: BPH Other Surgery: TURP, BIOPSY Social History Smoking Cessation: Never Smoker Alcohol Use: None Any Illegal Drug Use: No Family History Family history of heart diseas: No Other family history HTN Review of Systems Review of Systems Constitutional: Reports no symptoms EENTM: Reports no symptoms Cardiovascular: Reports no symptoms Respiratory: Reports no symptoms Gastrointestinal: Reports no symptoms Genitourinary: Reports as per HPI Musculoskeletal: Reports no symptoms Integumentary: Reports no symptoms Neurological: Reports no symptoms Psychological: Reports no symptoms Endocrine: Reports no symptoms Hematological/Lymphatic: Reports no symptoms Physical Exam Related Data Allergies: Coded Allergies: No Known Allergies (Unverified , 02/22/20) Triage Vital Signs Vital Signs Date Time Temp Pulse Resp B/P (MAP) Pulse Ox O2 Delivery O2 Flow Rate FiO2 03/03/20 23:57 99.0 98 18 156/ 99 Room Air Vital signs reviewed: Yes Physical Exam CONSTITUTIONAL Constitutional: Present well-developed, Present well-nourished, Present distressed (MILD) HENT HENT: Present normocephalic, Present atraumatic, Present oropharynx clear/moist, Present nose normal HENT L/R: Present left ext ear normal, Present right ext ear normal EYES Eyes: Reports PERRL, Reports conjunctivae normal NECK Neck: Present ROM normal PULMONARY Pulmonary: Present effort normal, Present breath sounds normal CARDIOVASCULAR Cardiovascular: Present regular rhythm, Present heart sounds normal, Present capillary refill normal, Present normal rate GASTROINTESTINAL Abdominal: Present soft, Present bowel sounds normal, Present tender (SUPRAPUBIC TENDERNESS, BLADDER DISTENDED) GENITOURINARY Genitourinary: Present exam deferred SKIN Skin: Present warm, Present dry MUSCULOSKELETAL Musculoskeletal: Present ROM normal NEUROLOGICAL Neurological: Present alert, Present oriented x 3, Present no gross motor or sensory deficits PSYCHOLOGICAL Psychological: Present mood/affect normal, Present judgement normal Results Laboratory Laboratory Laboratory Tests Test 03/04/20 00:00 Urine Color Yellow (YELLOW) Urine Clarity Cloudy (CLEAR) Urine pH 6 (5 - 7) Urine Specific [place] >=1.030 (1.010-1.025) Urine Protein >=300 (NEGATIVE) Urine Glucose (UA) Negative (NEGATIVE) Urine Ketones Negative (NEGATIVE) Urine Blood Large (NEGATIVE) Urine Nitrite Positive (NEGATIVE) Urine Bilirubin Negative (NEGATIVE) Urine Urobilinogen 0.2 mg/dL (0.2 - 1) Urine Leukocyte Esterase Moderate (NEGATIVE) Urine RBC 21-50 /HPF (0-5) Urine WBC >50 /HPF (0-5) Urine Epithelial Cells Few /LPF (NONE) Urine Bacteria Moderate /HPF (NONE) Lab results reviewed: Yes Assessment & Plan Medical Decision Making MDM PT WITH URINARY RETENTION AND DISTENDED BLADDER ON EXAM GENAO CATHETER ORDERED FOR URINARY RETENTION, UA ORDERED TO EVAL FOR UTI 1000 CC URINE OUTPUT AFTER GENAO PLACED FOUND TO HAVE UTI ROCEPHIN 1 GRAM IM Assessment & Plan Final Impression: (1) UTI (urinary tract infection) (2) BPH (benign prostatic hyperplasia) (3) Urinary retention Depart Disposition: HOME, SELF-CARE Last Vital Signs Date Time Temp Pulse Resp B/P (MAP) Pulse Ox O2 Delivery O2 Flow Rate FiO2 03/03/20 23:57 99.0 98 18 156/ 99 Room Air Home Meds Reported Medications Docusate Sodium (COLACE) 100 Mg Cap, 100 MG PO PRN, #30 CAP 02/21/20 Metoprolol Tartrate (METOPROLOL TARTRATE) 25 Mg Tablet, 25 MG PO Q12HR PRN for ELEVATED BLOOD PRESSURE, #30 TAB 02/21/20 Cefdinir (OMNICEF) 300 Mg Capsule, 300 MG PO BID, #10 CAP 02/15/20 Levofloxacin (LEVOFLOXACIN) 250 Mg Tablet, 750 MG PO DAILY, #5 TAB 02/15/20 Acetaminophen/Codeine* (TYLENOL # 3*) 1 Ea Tab, 1 TAB PO Q4HR PRN for MODERATE PAIN (4-6) 02/15/20 Fluconazole (FLUCONAZOLE) 100 Mg Tablet, 100 MG PO DAILY, #7 TAB 02/15/20 Finasteride (FINASTERIDE) 5 Mg Tablet, 5 MG PO DAILY, #30 TAB 02/15/20 Oxybutynin Chloride (OXYBUTYNIN CHLORIDE) 5 Mg Tablet, 5 MG PO BID, #30 TAB 02/15/20 Sulfamethoxazole/Trimethoprim (BACTRIM DS TABLET) 1 Each Tablet, 1 TAB PO BID, #60 TAB 02/15/20 Tamsulosin Hcl* (FLOMAX*) 0.4 Mg Cap, 0.4 MG PO DAILY, #30 CAP 02/15/20 Medications in the ED Lidocaine HCl 10 ml STK-MED ONCE .ROUTE ; Start 03/04/20 at 00:04; Stop 03/03/20 at 23:58; Status DC YOANNA MO MD Mar 04, 2020 00:05
[2020-03-04 00:10] LABS: CLARITY,URINE CLOUDY (CLEAR); COLOR,URINE YELLOW (YELLOW); KETONES,URINE NEGATIVE (NEGATIVE); LEUKOCYTE ESTERASE ,URINE MODERATE (NEGATIVE); NITRITE,URINE POSITIVE (NEGATIVE); PROTEIN,URINE DIPSTICK >=300 (NEGATIVE); URINE UROBILINOGEN 0.2 mg/dL (0.2 - 1)
[2020-03-04 00:11] LABS: BILIRUBIN,URINE NEGATIVE (NEGATIVE)
[2020-03-04] MEDS ORDERED: LIDOCAINE JELLY 2% 10ML URO-JET TOP ONE (00:15)
[2020-03-04 00:21] LABS: BACTERIA,URINE MODERATE /HPF; EPITHELIAL CELLS,URINE FEW /LPF; RBC,URINE 21-50 /HPF (0-5); WBC,URINE (MAN) >50 /HPF (0-5)
--- OUTSIDE RECORDS SUMMARY | 2020-03-04 00:28 | XMS REPORT | Continuity of Care Document ---
Author Author [facility] t Organization [facility] t Address [address] [place] [address] Phone Unavailable Care Team Providers Care Technical Sales Consultant Name Role Phone Lashaun SCHILLING PCP HAMPEL, CAROL Attphys Unavailable NAVARRETE, ROWDY, SURGICAL SERVICES ASSISTANT Attphys Unavailable Payers Payer Name Policy Type Policy Number Effective Date Expiration Date S ource Problems Condition Name Condition Details Condition Category Status Onset Date Resolution Date Last Treatment Date Treating Clinician Comments Source Retention of urine Problem [facility] Urinary tract infection Problem Active [facility] Benign prostatic hyperplasia Problem Active [facility] Problem with Smith catheter Problem Active [facility] Allergies, Adverse Reactions, Alerts Allergy Name Allergy Type Status Severity Reaction(s) Onset Date Inacti ve Date Treating Clinician Comments Source No Known Allergies DA Active U 2019-11-01 00:00:00 [facility] ALMONDS DA Active U 2018-11-02 00:00:00 [facility] No Known Contrast Allergies DA Active U 2005-06-06 00:00: 00 [facility] No Known Drug Allergies DA Active U 2005-06-06 00:00:00 [facility] No Known Food Allergies DA Active U 2005-06-06 00:00:00 [facility] No Known Other Allergies DA Active U 2005-06-06 00:00:00 [facility] No Known Drug Intolerances DA Active U 2002-01-08 00:00:0 0 [facility] Social History Social Habit Start Date Stop Date Quantity Comments Source Sex Assigned At 1950 00:00:00 1950 00:00:00 Male [facility] Medications Ordered Medication Name Filled Medication Name Start Date Stop Da te Current Medication? Ordering Clinician Indication Dosage Frequency Signature (SIG) Comments Components Source Cefdinir (Omnicef) 300 Mg CAPSULE Cefdinir (Omnicef) 300 Mg CAPSULE 2020-02-14 06:25:00 2020-02-15 00:00:00 No 1 Twice A Day for Urine Infection [facility] Nitrofurantoin Monohyd/M-Cryst (Macrobid 100 Mg Capsul e) 100 Mg CAPSULE Nitrofurantoin Monohyd/M-Cryst (Macrobid 100 Mg Capsule) 100 Mg CAPSULE 2020-02-05 21:07:00 2020-02-15 00:00:00 No 100 Twice Daily With Meals [facility] Tamsulosin HCl - 0.4 MG Oral Capsule Tamsulosin HCl - 0.4 MG Oral C apsule Yes [facility] Acetaminophen/Codeine Phosphate (Tylenol # 3*) 1 Ea TA B Acetaminophen/Codeine Phosphate (Tylenol # 3*) 1 Ea TAB Yes 1 Every 4 Hours as needed for Moderate Pain (4-6) [facility] Cefdinir (Omnicef) 300 Mg CAPSULE Cefdinir (Omnicef) 300 Mg CAPSULE Yes 300 Twice A Day [facility] Docusate Sodium (Colace) 100 Mg CAP Docusate Sodium (Colace) 100 Mg C AP Yes 100 As Needed [facility] Finasteride Finasteride Yes 5 Daily [facility] Fluconazole Fluconazole Yes 100 Daily [facility] Levofloxacin Levofloxacin Yes 750 Daily [facility] Metoprolol Tartrate Metoprolol Tartrate Yes 25 Every 12 Hours as needed for Elevated Blood Pressure [facility] Oxybutynin Chloride Oxybutynin Chloride Yes 5 Twice A Day [facility] Sulfamethoxazole/Trimethoprim (Bactrim Ds Tablet) 1 Ea ch TABLET Sulfamethoxazole/Trimethoprim (Bactrim Ds Tablet) 1 Each TABLET Yes 1 Twice A Day [facility] Tamsulosin Hcl (Flomax*) 0.4 Mg CAP Tamsulosin Hcl (Flomax*) 0.4 Mg C AP Yes .4 Daily [facility] Vital Signs Vital Name Observation Time Observation Value Comments Source Oxygen saturation by Pulse oximetry 2020-02-22 15:38:00 97 /min [facility] Weight 2020-02-22 15:38:00 233 [lb_av] [facility] BMI (Body Mass Index) 2020-02-22 15:38:00 30.7 kg/m2 [facility] Body Temperature 2020-02-21 12:05:00 97.8 [degF] [facility] Heart Rate 2020-02-21 12:05:00 76 /min [facility] Respiratory rate 2020-02-21 12:05:00 22 /min [facility] BP Systolic 2020-02-21 12:05:00 159 mm[Hg] [facility] BP Diastolic 2020-02-21 12:05:00 94 mm[Hg] [facility] Oxygen saturation by Pulse oximetry 2020-02-21 12:05:00 100 /min [facility] Weight 2020-02-18 15:17:00 233 [lb_av] [facility] BMI (Body Mass Index) 2020-02-18 15:17:00 30.7 kg/m2 [facility] Oxygen saturation by Pulse oximetry 2020-02-15 17:55:00 97 /min [facility] Weight 2020-02-15 17:55:00 236 [lb_av] [facility] BMI (Body Mass Index) 2020-02-15 17:55:00 31.1 kg/m2 [facility] Oxygen saturation by Pulse oximetry 2020-02-14 06:00:00 98 /min [facility] Weight 2020-02-14 06:00:00 240 [lb_av] [facility] BMI (Body Mass Index) 2020-02-14 06:00:00 31.7 kg/m2 [facility] Oxygen saturation by Pulse oximetry 2020-02-05 20:40:00 98 /min [facility] Weight 2020-02-05 20:40:00 237 [lb_av] [facility] BMI (Body Mass Index) 2020-02-05 20:40:00 31.3 kg/m2 [facility] Systolic blood pressure 2019-11-04 09:19:00 181 mm[Hg] Loca tion: LUE; Position: Standing [facility] Diastolic blood pressure 2019-11-04 09:19:00 98 mm[Hg] Loc ation: LUE; Position: Standing [facility] Body height 2019-11-04 09:19:00 73 [in_us] [facility] Weight 2019-11-04 09:19:00 240 [lb_av] [facility] Body mass index (BMI) [Ratio] 2019-11-04 09:19:00 31.66 kg/m2 [facility] Body temperature 2019-11-04 09:19:00 99 [degF] Method: Temporal [facility] Heart Rate 2019-11-04 09:19:00 114 /min [facility] Respiratory rate 2019-11-04 09:19:00 18 /min [facility] Procedures Procedure Date / Time Performed Performing Clinician Sour e X-ray of chest, two views 2020-02-15 00:00:00 [facility] INSERT TEMP BLADDER CATH 2020-02-05 00:00:00 [facility] Plan of Care Planned Activity Planned Date Details Comments Source Instructions [facility] Catheter [facility] Encounters Start Date/Time End Date/Time Encounter Type Admission Type [facility] Care Department Encounter ID Source 2020-02-22 15:44:00 2020-02-22 16:36:00 Departed Emergency Room [facility] [id number] [facility] 2020-02-18 13:27:00 2020-02-21 15:33:00 Discharged Inpatient 3 HAMPEL, CAROL [facility] [id number] [facility] 2020-02-15 18:29:00 2020-02-15 18:44:00 Departed Emergency Room [facility] [id number] [facility] 2020-02-14 06:10:00 2020-02-14 06:42:00 Departed Emergency Room [facility] [id number] [facility] 2020-02-05 21:21:00 2020-02-05 21:43:00 Departed Emergency Room [facility] [id number] [facility] 2019-11-04 09:30:00 2019-11-04 09:30:00 Appointment; ROWDY NAVARRETE APRN TRAN, JUSTINE, APRN [facility] Urology - [facility] [id number] [facility] Results Test Description Test Time Test Comments Results Result Comments Source Blood leukocytes automated count (number/volume) 2020-02-21 04:35:00 Test Item White Blood Count (test code = 6690-2) 5.90 10*3/uL 4.8-10.8 [facility] automated count (number/volume)2020-02-21 04:35:00* Test Item Value Reference Range Interpretation Comments Red Blood Count (test code = 789-8) 4.76 10*6/mL 4.3-5.7 [facility] hemoglobin measurement (moles/volume)2020-02-21 04:35:00* Test Item Value Reference Range Interpretation Comments Hemoglobin (test code = 75149-7) 11.4 g/dL 14.0-18.0 [facility] ResourcesAutomated blood hematocrit (volume fraction)2020-02-21 04:35:00* Test Item Value Reference Range Interpretation Comments Hematocrit (test code = 4544-3) 37.3 % 38.2-49.6 [facility] ResourcesAutomated erythrocyte mean corpuscular [id number] 04:35:00* Test Item Value Reference Range Interpretation Comments Mean Corpuscular Volume (test code = 787-2) 78.4 81-99 [facility]Automated erythrocyte mean corpuscular hemoglobin (mass per erythrocyte)2020-02-21 04:35:00* Test Item Value Reference Range Interpretation Comments Mean Corpuscular Hemoglobin (test code = 785-6) 23.9 pg 28-32 [facility] ResourcesAutomated erythrocyte mean corpuscular hemoglobin concentration measurement (mass/volume)2020-02-21 04:35:00* Test Item Value Reference Range Interpretation Comments Mean Corpuscular Hemoglobin Concent (test code = 786-4) 30.6 g/dL 31-35 [facility] ResourcesRDW [id number] 04:35:00* Test Item Value Reference Range Interpretation Comments Red Cell Distribution Width (test code = 00173-4) 15.2 % 11.7 -14.4 [facility] ResourcesAutomated blood platelet count (count/volume)2020-02-21 04:35:00* Test Item Value Reference Range Interpretation Comments Platelet Count (test code = 777-3) 358 10*3/uL 140-360 [facility] neutrophil count as percentage of total [id number] 04:35:00* Test Item Value Reference Range Interpretation Comments Neutrophils (%) (Auto) (test code = 99806-3) 55.0 % 38.7-80.0 [facility] ResourcesAutomated blood lymphocyte count as percentage ot total [id number] 04:35:00* Test Item Value Reference Range Interpretation Comments Lymphocytes (%) (Auto) (test code = 736-9) 25.4 % 18.0-39.1 [facility] ResourcesAutomated blood monocyte count as percentage of total [id number] 04:35:00* Test Item Value Reference Range Interpretation Comments Monocytes (%) (Auto) (test code = 5905-5) 10.3 % 4.4-11.3 [facility] ResourcesAutomated blood eosinophil count as percentage of total [id number] 04:35:00* Test Item Value Reference Range Interpretation Comments Eosinophils (%) (Auto) (test code = 713-8) 6.9 % 0.0-6.0 [facility] basophil count as percentage of total [id number] 04:35:00* Test Item Value Reference Range Interpretation Comments Basophils (%) (Auto) (test code = 706-2) 1.0 % 0.0-1.0 [facility] ResourcesFluoroscopic procedure less than one hour [id number] 04:35:00* Test Item Value Reference Range Interpretation Comments IM GRANULOCYTES % (test code = IM GRANULOCYTES %) 1.4 % 0.0- 1.0 [facility] ResourcesAutomated blood neutrophil count 2020-02-21 04:35:00* Test Item Value Reference Range Interpretation Comments Neutrophils # (Auto) (test code = 751-8) 3.2 2.1-6.9 [facility]Blood lymphocytes count (number/volume) 2020-02-21 04:35:00* Test Item Value Reference Range Interpretation Comments Lymphocytes # (Auto) (test code = 68547-4) 1.5 1.0-3.2 [facility] monocytes automated count (number/volume)2020-02-21 04:35:00* Test Item Value Reference Range Interpretation Comments Monocytes # (Auto) (test code = 742-7) 0.6 0.2-0.8 [facility] ResourcesAutomated blood eosinophil count 2020-02-21 04:35:00* Test Item Value Reference Range Interpretation Comments Eosinophils # (Auto) (test code = 711-2) 0.4 0.0-0.4 [facility] ResourcesAutomated blood basophil count (count/volume)2020-02-21 04:35:00* Test Item Value Reference Range Interpretation Comments Basophils # (Auto) (test code = 704-7) 0.1 0.0-0.1 [facility] ResourcesFluoroscopic procedure less than one hour [id number] 04:35:00* Test Item Value Reference Range Interpretation Comments Absolute Immature Granulocyte (auto (leana t code = Absolute Immature Granulocyte (auto) 0.08 10*3/uL 0-0.1 [facility] sodium measurement (moles/volume)2020-02-21 04:35:00* Test Item Value Reference Range Interpretation Comments Sodium Level (test code = 2951-2) 139 mmol/L 136-145 [facility] plasma potassium measurement (moles/volume)2020-02-21 04:35:00* Test Item Value Reference Range Interpretation Comments Potassium Level (test code = 2823-3) 4.5 mmol/L 3.5-5.1 [facility] plasma chloride measurement (moles/volume)2020-02-21 04:35:00* Test Item Value Reference Range Interpretation Comments Chloride Level (test code = 2075-0) 108 mmol/L 98-107 [facility] or plasma carbon dioxide, total measurement (moles/volume)2020-02-21 04:35:00* Test Item Value Reference Range Interpretation Comments Carbon Dioxide Level (test code = 2028-9) 24 mmol/L 22-29 [facility] or plasma anion [id number] 04:35:00* Test Item Value Reference Range Interpretation Comments Anion Gap (test code = 07970-3) 11.5 mmol/L 8-16 [facility] plasma urea nitrogen measurement (mass/volume)2020-02-21 04:35:00* Test Item Value Reference Range Interpretation Comments Blood Urea Nitrogen (test code = 3094-0) 7 mg/dL 7- [facility] plasma creatinine measurement (mass/volume)2020-02-21 04:35:00* Test Item Value Reference Range Interpretation Comments Creatinine (test code = 2160-0) 1.07 mg/dL 0.72-1.25 [facility] or plasma urea nitrogen/creatinine mass [id number] 04:35:00* Test Item Value Reference Range Interpretation Comments BUN/Creatinine Ratio (test code = 3097-3) 7 6-25 [facility] ResourcesEstimated glomerular filtration rate (GFR) [id number] 04:35:00* Test Item Value Reference Range Interpretation Comments Estimat Glomerular Filtration Rate (test code = 120699557) > 60 mL/ min >60 Ranges were taken from the National Kidney Disease Education Program and the [facility] literature.Reference ranges:60 or greater: Fxswtm95-32 ( for 3 consecutive months): Chronic kidney disease 15 or less: Kidney failureJoint [facility] between [facility] and [facility] ResourcesGlucose fucdsbwtmwz7788-47-74 04:35:00* Test Item Value Reference Range Interpretation Comments Glucose Level (test code = SUU4192) 107 mg/dL 74-118 [facility] or plasma calcium measurement (mass/volume)2020-02-21 04:35:00* Test Item Value Reference Range Interpretation Comments Calcium Level (test code = 51910-5) 8.6 mg/dL 8.4-10.2 [facility]Blood leukocytes automated count (number/volume)2020-02-21 04:35:00* Test Item Value Reference Range Interpretation Comments White Blood Count (test code = 6690-2) 5.90 10*3/uL 4.8-10.8 [facility] ResourcesBlood erythrocytes automated count (number/volume)2020-02-21 04:35:00* Test Item Value Reference Range Interpretation Comments Red Blood Count (test code = 789-8) 4.76 10*6/mL 4.3-5.7 [facility] ResourcesBlood hemoglobin measurement (moles/volume)2020-02-21 04:35:00* Test Item Value Reference Range Interpretation Comments Hemoglobin (test code = 27899-5) 11.4 g/dL 14.0-18.0 [facility] ResourcesAutomated blood hematocrit (volume fraction)2020-02-21 04:35:00* Test Item Value Reference Range Interpretation Comments Hematocrit (test code = 4544-3) 37.3 % 38.2-49.6 [facility] ResourcesAutomated erythrocyte mean corpuscular [id number] 04:35:00* Test Item Value Reference Range Interpretation Comments Mean Corpuscular Volume (test code = 787-2) 78.4 81-99 [facility] ResourcesAutomated erythrocyte mean corpuscular hemoglobin (mass per erythrocyte)2020-02-21 04:35:00* Test Item Value Reference Range Interpretation Comments Mean Corpuscular Hemoglobin (test code = 785-6) 23.9 pg 28-32 [facility] ResourcesAutomated erythrocyte mean corpuscular hemoglobin concentration measurement (mass/volume)2020-02-21 04:35:00* Test Item Value Reference Range Interpretation Comments Mean Corpuscular Hemoglobin Concent (test code = 786-4) 30.6 g/dL 31-35 [facility] ResourcesRDW [id number] 04:35:00* Test Item Value Reference Range Interpretation Comments Red Cell Distribution Width (test code = 45760-2) 15.2 % 11.7 -14.4 [facility] ResourcesAutomated blood platelet count (count/volume)2020-02-21 04:35:00* Test Item Value Reference Range Interpretation Comments Platelet Count (test code = 777-3) 358 10*3/uL 140-360 [facility] ResourcesAutomated blood segmented neutrophil count as percentage of total [id number] 04:35:00* Test Item Value Reference Range Interpretation Comments Neutrophils (%) (Auto) (test code = 04169-5) 55.0 % 38.7-80.0 [facility] ResourcesAutunc healthed blood lymphocyte count as percentage ot total [id number] 04:35:00* Test Item Value Reference Range Interpretation Comments Lymphocytes (%) (Auto) (test code = 736-9) 25.4 % 18.0-39.1 [facility] ResourcesAutomated blood monocyte count as percentage of total muupvwnilw1783-59-90 04:35:00* Test Item Value Reference Range Interpretation Comments Monocytes (%) (Auto) (test code = 5905-5) 10.3 % 4.4-11.3 [facility] ResourcesAutomated blood eosinophil count as percentage of total ohfwlztlii2214-63-43 04:35:00* Test Item Value Reference Range Interpretation Comments Eosinophils (%) (Auto) (test code = 713-8) 6.9 % 0.0-6.0 [facility] ResourcesAutomated blood basophil count as percentage of total [id number] 04:35:00* Test Item Value Reference Range Interpretation Comments Basophils (%) (Auto) (test code = 706-2) 1.0 % 0.0-1.0 [facility] ResourcesFluoroscopic procedure less than one hour [id number] 04:35:00* Test Item Value Reference Range Interpretation Comments IM GRANULOCYTES % (test code = IM GRANULOCYTES %) 1.4 % 0.0- 1.0 [facility] ResourcesAutomated blood neutrophil count 2020-02-21 04:35:00* Test Item Value Reference Range Interpretation Comments Neutrophils # (Auto) (test code = 751-8) 3.2 2.1-6.9 [facility] ResourcesBlood lymphocytes count (number/volume) 2020-02-21 04:35:00* Test Item Value Reference Range Interpretation Comments Lymphocytes # (Auto) (test code = 33900-0) 1.5 1.0-3.2 [facility] ResourcesBlood monocytes automated count (number/volume)2020-02-21 04:35:00* Test Item Value Reference Range Interpretation Comments Monocytes # (Auto) (test code = 742-7) 0.6 0.2-0.8 [facility] ResourcesAutomated blood eosinophil count 2020-02-21 04:35:00* Test Item Value Reference Range Interpretation Comments Eosinophils # (Auto) (test code = 711-2) 0.4 0.0-0.4 [facility] ResourcesAutomated blood basophil count (count/volume)2020-02-21 04:35:00* Test Item Value Reference Range Interpretation Comments Basophils # (Auto) (test code = 704-7) 0.1 0.0-0.1 [facility] ResourcesFluoroscopic procedure less than one hour [id number] 04:35:00* Test Item Value Reference Range Interpretation Comments Absolute Immature Granulocyte (auto (leana t code = Absolute Immature Granulocyte (auto) 0.08 10*3/uL 0-0.1 [facility] sodium measurement (moles/volume)2020-02-21 04:35:00* Test Item Value Reference Range Interpretation Comments Sodium Level (test code = 2951-2) 139 mmol/L 136-145 [facility]er[facility] or plasma potassium measurement (moles/volume)2020-02-21 04:35:00* Test Item Value Reference Range Interpretation Comments Potassium Level (test code = 2823-3) 4.5 mmol/L 3.5-5.1 [facility] plasma chloride measurement (moles/volume)2020-02-21 04:35:00* Test Item Value Reference Range Interpretation Comments Chloride Level (test code = 2075-0) 108 mmol/L 98-107 [facility]er[facility] or plasma carbon dioxide, total measurement (moles/volume)2020-02-21 04:35:00* Test Item Value Reference Range Interpretation Comments Carbon Dioxide Level (test code = 2028-9) 24 mmol/L 22-29 [facility] or plasma anion [id number] 04:35:00* Test Item Value Reference Range Interpretation Comments Anion Gap (test code = 69292-1) 11.5 mmol/L 8- [facility] plasma urea nitrogen measurement (mass/volume)2020-02-21 04:35:00* Test Item Value Reference Range Interpretation Comments Blood Urea Nitrogen (test code = 3094-0) 7 mg/dL 7- [facility] plasma creatinine measurement (mass/volume)2020-02-21 04:35:00* Test Item Value Reference Range Interpretation Comments Creatinine (test code = 2160-0) 1.07 mg/dL 0.72-1.25 [facility] or plasma urea nitrogen/creatinine mass [id number] 04:35:00* Test Item Value Reference Range Interpretation Comments BUN/Creatinine Ratio (test code = 3097-3) 7 6-25 [facility] ResourcesEstimated glomerular filtration rate (GFR) dircrbrajwier7853-26-56 04:35:00* Test Item Value Reference Range Interpretation Comments Estimat Glomerular Filtration Rate (test code = 995446899) > 60 mL/ min >60 Ranges were taken from the National Kidney Disease Education Program and the [facility] literature.Reference ranges:60 or greater: Outhtu63-42 ( for 3 consecutive months): Chronic kidney disease 15 or less: Kidney failureJoint [facility] between [facility] [place] [facility] ResourcesGlucose bxlfilxgsxz2190-95-23 04:35:00* Test Item Value Reference Range Interpretation Comments Glucose Level (test code = EAJ0578) 107 mg/dL 74-118 [facility] plasma calcium measurement (mass/volume)2020-02-21 04:35:00* Test Item Value Reference Range Interpretation Comments Calcium Level (test code = 49394-5) 8.6 mg/dL 8.4-10.2 [facility] ResourcesFluoroscopic procedure less than one hour ktzduhec8181-30-05 04:50:00* Test Item Value Reference Range Interpretation Comments Hemoglobin A1c Percent (test code = Hemoglobin A1c Percent) 5.5 % 4.0-7.0 [facility] plasma triglyceride measurement (mass/volume)2020-02-19 04:50:00* Test Item Value Reference Range Interpretation Comments Triglycerides Level (test code = 2571-8) 351 mg/dL 0-149 [facility] plasma cholesterol measurement (mass/volume)2020-02-19 04:50:00* Test Item Value Reference Range Interpretation Comments Cholesterol Level (test code = 2093-3) 176 mg/dL 0-199 Less than 200 mg/dL Low Zhvl504 - 239 mg/dL Borderline Wcgc443 m g/dl and greater High Risk [facility] plasma cholesterol in LDL measurement (mass/volume) 2020-02-19 04:50:00* Test Item Value Reference Range Interpretation Comments LDL Cholesterol (test code = 2089-1) 84 mg/dL 60-130 [facility] or plasma cholesterol in HDL measurement (mass/volume)2020-02-19 04:50:00* Test Item Value Reference Range Interpretation Comments HDL Cholesterol (test code = 2085-9) 22 mg/dL 40-60 [facility] or plasma total cholesterol/cholesterol in HDL mass mlgpp0948-08-12 04:50:00* Test Item Value Reference Range Interpretation Comments Cholesterol/HDL Ratio (test code = 9830-1) 8.0 3.9-4.7 [facility] ResourcesFluoroscopic procedure less than one hour cpxshsyi3296-81-26 04:50:00* Test Item Value Reference Range Interpretation Comments Hemoglobin A1c Percent (test code = Hemoglobin A1c Percent) 5.5 % 4.0-7.0 [facility] plasma triglyceride measurement (mass/volume)2020-02-19 04:50:00* Test Item Value Reference Range Interpretation Comments Triglycerides Level (test code = 2571-8) 351 mg/dL 0-149 [facility] or plasma cholesterol measurement (mass/volume)2020-02-19 04:50:00* Test Item Value Reference Range Interpretation Comments Cholesterol Level (test code = 2093-3) 176 mg/dL 0-199 Less than 200 mg/dL Low Iapr971 - 239 mg/dL Borderline Nwvb336 m g/dl and greater High Risk [facility] or plasma cholesterol in LDL measurement (mass/volume) 2020-02-19 04:50:00* Test Item Value Reference Range Interpretation Comments LDL Cholesterol (test code = 2089-1) 84 mg/dL 60-130 [facility]er[facility] or plasma cholesterol in HDL measurement (mass/volume)2020-02-19 04:50:00* Test Item Value Reference Range Interpretation Comments HDL Cholesterol (test code = 2085-9) 22 mg/dL 40-60 [facility] or plasma total cholesterol/cholesterol in HDL mass fqsow7647-07-84 04:50:00* Test Item Value Reference Range Interpretation Comments Cholesterol/HDL Ratio (test code = 9830-1) 8.0 3.9-4.7 [facility] or plasma magnesium measurement (mass/volume)2020-02-18 15:43:00* Test Item Value Reference Range Interpretation Comments Magnesium Level (test code = 91260-1) 1.8 mg/dL 1.3-2.1 [facility] plasma magnesium measurement (mass/volume)2020-02-18 15:43:00* Test Item Value Reference Range Interpretation Comments Magnesium Level (test code = 43086-9) 1.8 mg/dL 1.3-2.1 [facility] [place] [facility] ResourcesCHES 2 OQVKR6151-10-11 13:59:00 [facility] 1950 Sex: M [place] [address] Patient Name: YOHANNES TRIPP MR #: [id number] : 1950 Age/Sex: 69/M Req #: [id number] Adm Physician: Ordered by: CAROL CHRIS MD Report #: [id number] Location: OR Room/Bed: Procedure: [id number] DX/CHEST 2 VIEWS Exam Date: 04/16/19 Exam [...] MD Fluoroscopic procedure less than one hour cliztegc7724-83-50 13:57:00* Test Item Value Reference Range Interpretation Comments Coronavirus (PCR) (test code = Coronavirus (PCR)) NOT DETECTED NOTD ETECTED SARS-CoV-2 PCRHologic Aptima SARS-CoV-2 assay is a nucleic amplification test in tended for the qualitative detection of RNA from SARS-CoV-2 from nasopharyngeal ([employer]) specimens. It is used under Emergency Use [...] repr at testing oc clinically indicated.Tesing performed by:[facility] Laboratory Services3 [address] [facility] [place] [id number] MD, PhDJoint [facility] between [facility] [place] [facility] ResourcesFluoroscopic procedure less than one hour enzxmmul4264-33-87 13:57:00* Test Item Value Reference Range Interpretation Comments Coronavirus (PCR) (test code = Coronavirus (PCR)) NOT DETECTED NOTD ETECTED SARS-CoV-2 PCRHologic Aptima SARS-CoV-2 assay is a nucleic amplification test in tended for the qualitative detection of RNA from SARS-CoV-2 from nasopharyngeal ([employer]) specimens. It is used under Emergency Use [...] repr at testing oc clinically indicated.Tesing performed by:[facility] Laboratory Services3 [facility] [id number], Brody jeffers MD, PhDJoint [facility] [place] [facility] ResourcesBacterial urine culture 2020-02-14 06:22:00* Test Item Value Reference Range Interpretation Comments Urine Culture (test code = 630-4) [employer] [facility] [place] [facility] ResourcesBacterial urine zeruttq7573-24-44 06:22:00* Test Item Value Reference Range Interpretation Comments Urine Culture (test code = 630-4) [employer] [facility] [place] [facility] ResourcesURINALYSIS CJKEQNOT2019-12-82 21:22:00* Test Item Value Reference Range Interpretation [...] RARE per HPF NONE Urine Source? CatheterURINALYSIS BUTEFJKM1646-04-53 21:15:00* Test Item Value Reference Range Interpretation [...] per HPF NONE Urine Source? CatheterBASIC METABOLIC [id number] 20:57:00* Test Item Value Reference Range Interpretation [...] CA) 8.4 mg/dL 8.0-10.5 N CBC W/AUTO DSAM6697-70-58 20:49:00* Test Item Value Reference Range Interpretation [...] = BA#) 0.04 K/mm3 0.0-0.2 N URINALYSIS ZGHZAVZZ4024-09-08 23:01:00* Test Item Value Reference Range Interpretation [...] per HPF NONE Urine Source? Clean CatchURINALYSIS VFAYDGXU7878-46-32 22:58:00* Test Item Value Reference Range Interpretation [...] HPF NONE Urine Source? Clean CatchCOMPREHENSIVE METABOLIC SCWXH4660-13-15 22:46:00* Test Item Value Reference Range Interpretation [...] ALKP) 78 U/L 50-139 N COMPREHENSIVE METABOLIC RZUBL0172-50-29 22:35:00* Test Item Value Reference Range Interpretation [...] code = ALKP) IUnit/L 45-117 CBC W/AUTO [id number] 22:26:00* Test Item Value Reference Range Interpretation [...] code = BA#) 0.02 K/mm3 0.0-0.2 N PROSTATE,RKDALL1804-53-41 15:08:00 RUN DATE: 11/06/18 [facility] [facility] PAGE 1 RUN TIME: 1508 Specimen Inqui ry RUN USER: INTERFACE PATIENT: YOHANNES TRIPP ACCT #: [id number] LOC: [place] U #: [id number] AGE/SX: 67/M ROOM: RE11/04/18REG DR: Edis Sosa : 54 BED: DIS: STATUS: NAPOLEON CRANE TLOC: SPEC #: [id number] RECD: 11/04/18 STATUS: JENNYFER BACK #: [id number] ROSANGELA: 11/04/18- DR: Edis Sosa eorogers ENTERED: 11/04/18-1111 SP TYPE: BX PROS OTHR DR: Sal Schilling MD ORDERED: GROSS COPIES TO: Edis Sosa [address] [place] [address] [place] [address] [facility] [address] [place] [address] MARKERS: INTRADEPARTMENTAL CONSULT PROCEDURES: GROSS (11/06/18) TISSUES: [...] ON NEXT P AGE RUN DATE: 11/06/18 [facility] PAGE 2 RUN TIME: 1508 Specime n Inquiry RUN USER: INTERFACE SPEC #: [id number] PATIENT: YOHANNES LEON #[id number] (Continued) FINAL D IAGNOSIS Prostate, left base [...] ON NEX T PAGE RUN DATE: 11/06/18 [facility] PAGE 3 RUN TIME: 1508 Spec imen Inquiry RUN USER: INTERFACE SPEC #: [id number] PATIENT: YOHANNES PRETTY #[id number] (Continued) FINAL DIAGNOSIS (Continued) [facility]/ D [id number] MACROSCOPIC The first specimen is labeled "right [...] ON NEXT PAGE RUN DATE : 11/06/18 [facility] PAGE 4 RUN TIME: 1508 Specimen Inquiry RUN USER: INTERFACE SPEC #: [id number] PATIENT: JOSEEYOHANNES AGUILA #[id number] (Continued) MACROSCOPIC (Continue d) The twelfth specimen is labeled "left apex lateral" and consists of on e moss soft tissue core biopsy measuring 1.0 and 1.1 cm in length by 0.1 cm in diameter, submitted as (12). GROSS PERFORMED AT [facility] [address] [place] [address] (p)[phone] MICROSCOPIC All of the stains, including an y controls performed, stain appropriately. MICROSCOPIC PERFORMED AT [facility] [address] [place] [address] (p)[phone] PERFORMING SITE Diagnosis performed a t: [facility] [place] [address] [place] [address] -- Signed SIGNATURE ON FILE Gale Renteria MD 11/06/18 1508 MAGUI D OF REPORT - XR CHEST 2 [id number] 07:15:00 FAX: Edis Diaz [phone] [place]: St: REG FAX: Dolores Johnson MD [phone] Name: YOHANNES TRIPP [facility] : 1950 Age/S: 67/M [address] [facility] Unit #: [id number] Loc: [facility] [place] [address] Phys: Edis Sosa Acct: [id number] Dis Date: Status: REG SD PHONE #: [phone] Exam Date: 11/04/2018 0656 FAX #: [phone] Reason: PRE-OP EXAMS: CPT CODE: [id number] XR CHEST 2 V 95527 HISTORY: PRE-OP TECHNIQUE: AP chest x-ray COMPARISON: [...] (0718) PAGE 1 Signed Report BASIC METABOLIC [id number] 07:05:00* Test Item Value Reference Range Interpretation [...] CA) 9.4 mg/dL 8.5-10.1 N CBC W/AUTO [id number] 07:04:00* Test Item Value Reference Range Interpretation [...] NRBC#) 0.00 K/mm3 0.0-0.1 N BASIC METABOLIC MHAOW1434-12-15 07:02:00* Test Item Value Reference Range Interpretation [...]
[2020-03-04] MEDS ORDERED: CEFTRIAXONE SOD 1 GM VIAL IM ONE (00:30)
[2020-03-04] MEDS ORDERED: CEFTRIAXONE SOD 1 GM VIAL ONE ×2 (00:33→00:37)
[2020-03-04] MEDS ORDERED: LIDOCAINE HCL 1% 2 ML AMP ONE (00:38)
== END 2020-03-04 01:07 | disposition home or self-care (01) ==
LOC: ER 03-04 00:01
DX: R33.9 Retention of urine, unspecified (principal); N40.1 Benign prostatic hyperplasia with lower urinary tract symptoms; N39.0 Urinary tract infection, site not specified; I10 Essential (primary) hypertension
CPT/HCPCS: 51702; 81001; 87086; 87186; 99283; J0696; J2001; 51700